=== PATIENT | male | born 1945 | race Caucasian/White ===

== ENCOUNTER 2017-03-21 12:26 | Day surgery (SDC) | payer MEDICARE, OTHER ==
[2017-03-18 10:01] VITALS: BMI 26.5
[~2017-03-21 12:26] MED LIST: LACTATED RINGERS 1,000 ML IV SCH; LIDOCAINE 1% 20 ML VIAL (10MG/ML) FOR IV START INTRADERMA PRN
[2017-03-21 12:58] VITALS: TEMP 97.3
[2017-03-21] MEDS ORDERED: PROPOFOL 10 MG/ML 20 ML VIAL IV ONE (14:20)
--- NOTE | 2017-03-21 14:51 | P.PCN ---
Date of Procedure: 03/21/17 Preoperative Diagnosis: Postoperative Diagnosis: Procedure(s) Performed: Procedure: Esophagogastroduodenoscopy and biopsy. Preoperative diagnosis: Chronic reflux symptoms with recent nocturnal episodes of vomiting despite therapy. Postoperative diagnosis: 1. Moderately sized hiatal hernia with LA grade B distal esophagitis. 2. Mild antral gastritis. 3. Multiple biopsies obtained from the duodenum, antrum and esophagus. Preparation and sedation: Was provided by anesthesia. Brief clinical history: The patient is a 71-year-old male who I have evaluated in the office recently regarding chronic reflux symptoms with recent nocturnal episodes of vomiting while on therapy. The patient apparently was diagnosed in the and his problem was controlled with Nexium or other PPI. For the last 3 months or so he is been having nocturnal episodes of reflux and vomiting. This evaluation is to assess for the degree of his esophagitis, rule out complicated reflux disease or other pathology. Procedure: With the patient on his left lateral decubitus position and after informed consent and adequate sedation, I passed the Olympus-GIF 160 video upper endoscope through the cricopharyngeus down the esophagus GE junction was around 35 cm from the incisors and there was a moderately sized hiatal hernia close to 4 or 5 cm in size. The esophagus showed short linear erosion terminating at the GE junction consistent with LA grade B distal esophagitis. There were no ulcers, strictures or Fischer's esophagus. The endoscope was then passed into the stomach which was insufflated with air and inspected in detail including the retroflex view in the cardia. There was some mottling and erythema in the antrum but no ulcers or erosions. Pyloric channel, duodenal bulb, post bulbar area and descending duodenum appeared within normal limits. Because of his symptoms, I obtained biopsies from the duodenum, in addition to biopsies from the antrum and esophagus then the endoscope was withdrawn. The patient tolerated the procedure well. Plan: The patient was reassured. Will await biopsy results and make further plans based on his course and biopsy results. I will keep you updated on his progress. Implants: Indications for Procedure: Operative Findings: Description of Procedure:
[2017-03-21 15:17] VITALS: BP 172/85; PULSE 62; RESP 16
== END 2017-03-21 15:42 | disposition home or self-care (01) ==
LOC: ORWHC2ENDO 12:26
DX: K21.0 Gastro-esophageal reflux disease with esophagitis (principal); K29.50 Unspecified chronic gastritis without bleeding; K44.9 Diaphragmatic hernia without obstruction or gangrene; E07.9 Disorder of thyroid, unspecified; I69.398 Other sequelae of cerebral infarction; Z87.891 Personal history of nicotine dependence; Z79.82 Long term (current) use of aspirin; Z79.899 Other long term (current) drug therapy
CPT/HCPCS: 88305; 88312; 88342; 43239; J2704

== ENCOUNTER 2017-07-04 10:20 | Day surgery (SDC) | payer MEDICARE, OTHER ==
[2017-06-30 10:06] VITALS: BMI 26.5
[~2017-07-04 10:20] MED LIST changes: -LIDOCAINE 1% 20 ML VIAL (10MG/ML) FOR IV START INTRADERMA PRN
[2017-07-04 10:53] VITALS: RESP 16; TEMP 971
[2017-07-04] MEDS ORDERED: PROPOFOL 10 MG/ML 20 ML VIAL IV ONE (11:28)
[2017-07-04] MEDS ORDERED: LIDOCAINE 1% INJ 10MG/ML (20 ML MDV) ONE (11:28)
[2017-07-04 12:12] VITALS: PULSE 70
[2017-07-04 12:25] VITALS: BP 108/64
--- NOTE | 2017-07-04 12:42 | P.PCN ---
Date of Procedure: 07/04/17 Procedure(s) Performed: Procedures: 1. Esophagogastroduodenoscopy and biopsy. 2. Total colonoscopy. Preoperative diagnosis: Gastroesophageal reflux disease and blood in the stools. Postoperative diagnosis: 1. Moderately size hiatal hernia with LA grade B/C distal esophagitis but no strictures or Fischer's esophagus. 2. Mild sigmoid diverticulosis with no evidence of acute diverticulitis, strictures, polyps or cancer. Preparation: HalfLytely prep. Sedation: Was provided by anesthesia. Brief clinical history: The patient is a 72-year-old male who I have evaluated in the past regarding chronic reflux symptoms with nocturnal episodes of vomiting while on acid suppressive therapy. The patient apparently was diagnosed in the and his problem was controlled with Nexium or other PPI. For the last several months, he has been having nocturnal episodes of reflux and vomiting. He had an upper endoscopy in March that showed hiatal hernia and LA grade B distal esophagitis as well as gastritis and duodenitis. This evaluation is to assess the healing of the esophagitis and to rule out any colonic pathology to account for the blood in his stool. Procedure: With the patient on his left lateral decubitus position and after informed consent and adequate sedation, I passed the Olympus-GIF 160 video upper endoscope through the cricopharyngeus down the esophagus GE junction was around 35 cm from the incisors and there was a moderately sized hiatal hernia close to 4 or 5 cm in size, as previously described. The esophagus showed short linear erosion terminating at the GE junction consistent with LA grade B/ C distal esophagitis. There were no ulcers, strictures or Fischer's esophagus. The endoscope was then passed into the stomach which was insufflated with air and inspected in detail including the retroflex view in the cardia. No obvious abnormalities were noted. Pyloric channel, duodenal bulb, post bulbar area and descending duodenum appeared within normal limits. Because of his symptoms, I obtained biopsies from the esophagus then the endoscope was withdrawn and I proceeded with the colonoscopy. Perianal area did not show any fissures or fistulas. There were no masses felt on digital rectal examination. The Olympus CFQ 160L video colonoscope was then inserted in the rectum and the usual fashion and advanced to the cecum. There was occasional small diverticular orifices seen in the sigmoid with no evidence of acute diverticulitis or strictures. The mucosa appeared healthy. No polyps or tumors were seen. I retroflexed the endoscope in the rectum before the endoscope was withdrawn. There was no other pathology or any evidence of bleeding noted during this exam. The patient tolerated the procedure well. Plan: The patient was reassured. Will continue to optimize his acid reflux management and make further plans based on his response. He will follow up with you as planned and I will keep you updated on his progress.
== END 2017-07-04 12:57 | disposition home or self-care (01) ==
LOC: ORWHC2ENDO 10:20
DX: K21.0 Gastro-esophageal reflux disease with esophagitis (principal); K92.1 Melena; K44.9 Diaphragmatic hernia without obstruction or gangrene; R11.10 Vomiting, unspecified; K57.30 Diverticulosis of large intestine without perforation or abscess without bleeding; I10 Essential (primary) hypertension; E07.9 Disorder of thyroid, unspecified; E78.5 Hyperlipidemia, unspecified; R25.1 Tremor, unspecified; Z86.73 Personal history of transient ischemic attack (TIA), and cerebral infarction without residual deficits; Z79.899 Other long term (current) drug therapy; Z79.82 Long term (current) use of aspirin
CPT/HCPCS: 88305; 45378; 43239; J2001; J2704

== ENCOUNTER 2019-03-17 11:36 | Emergency (ER) | payer MEDICARE, OTHER ==
[2019-03-17 11:45] VITALS: RESP 18
[2019-03-17] MEDS ORDERED: SODIUM CHLORIDE 0.9% 500 ML 500 ML IV ONE (11:48)
[2019-03-17] MEDS ORDERED: ACETAMINOPHEN TAB 325 MG TAB PO STA (11:56)
--- NOTE | 2019-03-17 11:56 | ED ---
General Adult HPI - General Chief complaint: Recheck/Abnormal Lab/Rx Stated complaint: abn labs Time Seen by Provider: 03/17/19 11:47 Source: patient, RN notes reviewed Mode of arrival: ambulatory Limitations: no limitations - History of Present Illness Initial comments: 73-year-old male presents emergency Department with chief complaint of abnormal labs. Patient states he has been sick for last few days was seen in urgent care and which she'll labs and found to have an elevated d-dimer. Patient states he has productive cough, fevers and chills. Patient did admit that he flew back from the on Tuesday. Patient denies any pleuritic chest pain no chest pain currently. Patient denies headache, dizziness, neck pain, neck stiffness, abdominal pain including nausea vomiting diarrhea constipation. - Related Data Home Medications Medication Instructions Recorded Confirmed Aspirin [Adult Low Dose Aspirin EC] 81 mg PO DAILY 03/18/17 03/17/19 Celecoxib [CeleBREX] 200 mg PO DAILY 03/18/17 03/17/19 Cholecalciferol [Vitamin D3] 5,000 unit PO DAILY 03/18/17 03/17/19 Levothyroxine Sodium [Tirosint] 50 mcg PO DAILY 03/18/17 03/17/19 Montelukast [Singulair] 10 mg PO DAILY 03/18/17 03/17/19 Multivitamins, Thera [Multivitamin 1 tab PO DAILY 03/18/17 03/17/19 (formulary)] [place] 3-6-9 1,600 mg PO DAILY 03/18/17 03/17/19 Sertraline [Zoloft] 25 mg PO DAILY 03/18/17 03/17/19 Simvastatin [Zocor] 80 mg PO HS 03/18/17 03/17/19 Ubidecarenone [Co Q-10] 400 mg PO DAILY 03/18/17 03/17/19 Triamcinolone Acetonide [Nasacort] 1 spray EA NOSTRIL HS PRN 06/30/17 03/17/19 Pantoprazole Sodium [Protonix] 40 mg PO DAILY 03/17/19 03/17/19 Previous Rx's Medication Instructions Recorded Azithromycin [Zithromax Z-pack] 0 mg PO DIRECTED #1 pack 03/17/19 Allergies Allergy/AdvReac Type Severity Reaction Status Date / Time No Known Allergies Allergy Verified 03/17/19 12:04 Review of Systems ROS Statement: Those systems with pertinent positive or pertinent negative responses have been documented in the HPI. ROS Other: All systems not noted in ROS Statement are negative. 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 HIATAL HERNIA. BLOOD IN STOOL; PAIN W/ EATING. History of Any Multi-Drug Resistant Organisms: None Reported Past Surgical History: Orthopedic Surgery, Tonsillectomy Additional Past Surgical History / Comment(s): Rt shoulder surgery, left wrist surgery, rt elbow surgery, bursa removed rt knee. EGD. Past Anesthesia/Blood Transfusion Reactions: No Reported Reaction Past Psychological History: Anxiety Smoking Status: Former smoker Past Alcohol Use History: None Reported Past Drug Use History: None Reported - Past Family History Mother Family Medical History: No Reported History General Exam Limitations: no limitations General appearance: alert, in no apparent distress Head exam: Present: atraumatic, normocephalic, normal inspection Eye exam: Present: normal appearance, PERRL, EOMI. Absent: scleral icterus, conjunctival injection, periorbital swelling ENT exam: Present: normal exam, normal oropharynx, mucous membranes moist Neck exam: Present: normal inspection, full ROM. Absent: tenderness, men ingismus, lymphadenopathy Respiratory exam: Present: normal lung sounds bilaterally. Absent: respiratory distress, wheezes, rales, rhonchi, stridor Cardiovascular Exam: Present: normal rhythm, tachycardia, normal heart sounds. Absent: systolic murmur, diastolic murmur, rubs, gallop, clicks GI/Abdominal exam: Present: soft, normal bowel sounds. Absent: distended, tenderness, guarding, rebound, rigid Course Vital Signs 03/17/19 11:42 Temperature 101.0 F H Pulse Rate 106 H Respiratory 18 Rate Blood Pressure 115/66 O2 Sat by Pulse 95 Oximetry Medical Decision Making - Medical Decision Making 73-year-old male presented ffor abnormal labs. CT is negative for acute PE. Patient does have a fever, labs otherwise unremarkable. Patient we treated for acute bronchitis. Return parameters were discussed. Disposition Clinical Impression: Acute bronchitis Disposition: HOME SELF-CARE Condition: Stable Instructions (If sedation given, give patient instructions): Acute Bronchitis (ED) Additional Instructions: Please return to the Emergency Department if symptoms worsen or any other concerns. Prescriptions: Azithromycin [Zithromax Z-pack] 0 mg PO DIRECTED #1 pack Is patient prescribed a controlled substance at d/c from ED?: No Referrals: Nam Auguste MD [Primary Care Provider] - 1-2 days Time of Disposition: 13:04
--- NOTE | 2019-03-17 13:00 | CT ---
EXAMINATION TYPE: CT chest angio for PE DATE OF EXAM: 03/17/2019 COMPARISON: None. HISTORY: Cough, productive and bloody CT DLP: 289.8 mGycm Automated exposure control for dose reduction was used. CONTRAST: CT Chest for pulmonary embolism performed with with IV Contrast, patient injected with 100 mL of Isov ue 370. FINDINGS: There is some minimal atelectasis at the left lung base. There is no significant axillary a denopathy. There is some shotty mediastinal adenopathy. There is some right hilar adenopathy with the largest lymph node measuring 1.2 cm. There is no evidence of pulmonary embolus. The aorta is normal in caliber without evidence of dissect ion. There is no pleural or pericardial fluid. The heart is not enlarged. There is a moderate sized s liding hiatal hernia. There is a simple appearing 2.6 cm right renal cyst. There is minimal hypertrophic spondylosis within the spine. IMPRESSION: 1. THIS EXAMINATION IS NEGATIVE FOR PULMONARY EMBOLUS. 2. SIMPLE APPEARING RIGHT RENAL CYST.
[2019-03-17] MEDS ORDERED: cefTRIAXone IN SWFI 1,000 MG/10 ML SYRINGE IVP STA (13:02)
[2019-03-17 13:34] VITALS: BP 137/75; PULSE 86; TEMP 97.6
== END 2019-03-17 13:38 | disposition home or self-care (01) ==
LOC: EC 11:36
DX: J20.9 Acute bronchitis, unspecified (principal); R00.0 Tachycardia, unspecified; K21.9 Gastro-esophageal reflux disease without esophagitis; E78.5 Hyperlipidemia, unspecified; E07.9 Disorder of thyroid, unspecified; F41.9 Anxiety disorder, unspecified; Z87.891 Personal history of nicotine dependence; Z79.1 Long term (current) use of non-steroidal anti-inflammatories (NSAID); Z79.82 Long term (current) use of aspirin; Z79.890 Hormone replacement therapy; Z79.899 Other long term (current) drug therapy; Z86.73 Personal history of transient ischemic attack (TIA), and cerebral infarction without residual deficits; Z90.89 Acquired absence of other organs
CPT/HCPCS: 71275; 99283; 96374; 96361; J0696; Q9967

== ENCOUNTER → 2019-03-17 | Outpatient (CLI) | payer MEDICARE, OTHER ==
[2019-03-17 10:55] LABS: Basophils % (A) 0 %; Eosinophils # (A) 0.3 k/uL (0-0.7); Eosinophils % (A) 3 %; HCT 39.7 % (39.0-53.0); HGB 12.5 gm/dL (13.0-17.5); Lymphocytes # (A) 1.6 k/uL (1.0-4.8); Lymphocytes % (A) 18 %; MCH 28.1 pg (25.0-35.0); MCHC 31.4 g/dL (31.0-37.0); MCV 89.7 fL (80.0-100.0); Mean Platelet Volume 7.5; Monocytes # (A) 0.6 k/uL (0-1.0); Monocytes % (A) 7 %; Neutrophils # (A) 5.9 k/uL (1.3-7.7); Neutrophils % (A) 68 %; Platelet Count 235 k/uL (150-450); RBC 4.43 m/uL (4.30-5.90); RDW 12.8 % (11.5-15.5); WBC 8.6 k/uL (3.8-10.6)
[2019-03-17 11:12] LABS: ALT 34 U/L (21-72); AST 33 U/L (17-59); Albumin 4.2 g/dL (3.5-5.0); Albumin/Globulin Ratio 1.3; Alkaline Phosphatase 60 U/L (38-126); Anion Gap 7 mmol/L; Blood Urea Nitrogen 22 mg/dL (9-20); Calcium 9.5 mg/dL (8.4-10.2); Carbon Dioxide 27 mmol/L (22-30); Chloride 107 mmol/L (98-107); Creatine Kinase 63 U/L (55-170); Globulin 3.3 g/dL; Glucose 97 mg/dL (74-99); Potassium 4.2 mmol/L (3.5-5.1); Sodium 141 mmol/L (137-145); Total Bilirubin 0.6 mg/dL (0.2-1.3); Total Protein 7.5 g/dL (6.3-8.2)
== END | disposition home or self-care (01) ==
LOC: LABWHC1 10:29
PROVIDERS: ATTEND Nurse Practitioner Adult Health
DX: R06.00 Dyspnea, unspecified (principal)
CPT/HCPCS: 36415; 80053; 82550; 84484; 85025; 85379

== ENCOUNTER → 2019-03-19 | Outpatient (CLI) | payer MEDICARE, OTHER ==
--- NOTE | 2019-03-19 14:08 | US ---
EXAMINATION TYPE: US venous doppler duplex LE DATE OF EXAM: 03/19/2019 1:45 PM COMPARISON: NONE CLINICAL HISTORY: R79.1 D dimer above reference range. SIDE PERFORMED: Bilateral TECHNIQUE: The lower extremity deep venous system is examined utilizing real time linear array sonog eddie with graded compression, doppler sonography and color-flow sonography. VESSELS IMAGED: External Iliac Vein (EIV) Common Femoral Vein Deep Femoral Vein Greater Saphenous Vein * Femoral Vein Popliteal Vein Small Saphenous Vein * Proximal Calf Veins (* superficial vessels) Grayscale, color doppler, spectral doppler imaging performed of the deep veins of the lower extremiti es. There is normal flow, compressibility, vascular waveforms. Right Leg: Negative for DVT Left Leg: Negative for DVT IMPRESSION: No sonographic evidence of deep venous thrombosis within the bilateral lower extremities .
== END | disposition home or self-care (01) ==
LOC: RADUSWWP 12:59
PROVIDERS: ATTEND Internal Medicine
DX: R79.1 Abnormal coagulation profile (principal)
CPT/HCPCS: 93970

== ENCOUNTER → 2019-03-28 | Outpatient (CLI) | payer MEDICARE, OTHER ==
--- NOTE | 2019-03-28 15:42 | MR ---
EXAMINATION TYPE: MR brain wo/w con DATE OF EXAM: 03/28/2019 COMPARISON: Prior brain MRI 06/29/2016 HISTORY: unspecified symptoms/signs nervous system and previous abnormal brain MRI TECHNIQUE: Multiplanar, multisequence images of the brain and brainstem is performed without and with IV contras t, utilizing 7 mL intravenous Gadavist . FINDINGS: Diffusion weighted images demonstrate no evidence of a recent infarct or other diffusion ab normality. There is no extra-axial fluid collection or significant interval change white matter sign al abnormality. The ventricular system and cisternal spaces are normal in size and appearance. The brain volume is age appropriate, cerebellar atrophy changes are again seen. Midline structures demonstrate normal morphology. The craniocervical junction appears within normal limits. Post contrast images demonstrate no abnormal enhancement. The dural venous sinuses appear pa tent. The visualized sinuses are clear and the globes are intact. Suspect some inflammatory change as sociated with the temporomandibular joint on the left. IMPRESSION: Stable exam. The white matter demyelination seen on previous exam is stable. Additional f indings above.
== END | disposition home or self-care (01) ==
LOC: RADMRIMAIN 13:35
PROVIDERS: ATTEND Physician Assistant
DX: G37.9 Demyelinating disease of central nervous system, unspecified (principal); G31.1 Senile degeneration of brain, not elsewhere classified
CPT/HCPCS: 70553; A9585

== ENCOUNTER → 2019-04-17 | Outpatient (CLI) | payer MEDICARE, OTHER ==
--- NOTE | 2019-04-18 07:11 | US ---
EXAMINATION TYPE: US carotid duplex BILAT DATE OF EXAM: 04/17/2019 COMPARISON: NONE CLINICAL HISTORY: I63.9 CEREBRAL INFARCTION. Stroke 1999, no symptoms now EXAM MEASUREMENTS: RIGHT: Peak Systolic Velocity (PSV) cm/sec ----- Right CCA: 72.7 ----- Right ICA: 89.6 ----- Right ECA: 176.0 ICA/CCA ratio: 1.2 RIGHT: End Diastole cm/sec ----- Right CCA: 20.3 ----- Right ICA: 29.4 ----- Right ECA: 14.4 LEFT: Peak Systolic Velocity (PSV) cm/sec ----- Left CCA: 87.8 ----- Left ICA: 94.1 ----- Left ECA: 142.0 ICA/CCA ratio: 1.1 LEFT: End Diastole cm/sec ----- Left CCA: 18.9 ----- Left ICA: 27.1 ----- Left ECA: 12.5 VERTEBRALS (direction of flow): Right Vertebral: Antegrade Left Vertebral: Antegrade Rhythm: Normal Heterogeneous plaque seen throughout IMPRESSION: Mild degree of grayscale atheromatous plaquing with no sonographically evident hemodynam ically significant stenosis within either internal carotid artery or common carotid artery. Incidenta jama noted 50-69% stenosis in both external carotid arteries. Criteria for Assigning % of Stenosis / Diameter reduction (Estimation based on the indirect measurements of the internal carotid artery velocities (ICA PSV). 1. Normal (no stenosis)=ICA PSV < 125 cm/s: ratio < 2.0: ICA EDV<40 cm/s. 2. Less than 50% stenosis=ICA PSV < 125 cm/s: ratio < 2.0: ICA EDV<40 cm/s. 3. 50 to 69% stenosis=ICA PSV of 125 to 230 cm/s: ration 2.0 ? 4.0: ICA EDV 40-100 cm/s. 4. Greater than 70% stenosis to near occlusion= ICA PSV > 230 cm/s: ratio > 4.0: ICA EDV > 100 cm/s. 5. Near occlusion= ICA PSV velocities may be low or undetectable: variable ratio and ICA EDV. 6. Total occlusion=unable to detect flow.
== END | disposition home or self-care (01) ==
LOC: RADUSWWP 15:20
PROVIDERS: ATTEND Internal Medicine
DX: I65.23 Occlusion and stenosis of bilateral carotid arteries (principal); I63.9 Cerebral infarction, unspecified; I67.2 Cerebral atherosclerosis
CPT/HCPCS: 93880

== ENCOUNTER → 2019-11-29 | Outpatient (CLI) | payer MEDICARE, OTHER ==
--- NOTE | 2019-11-29 11:05 | FL ---
EXAMINATION TYPE: FL barium swallow DATE OF EXAM: 11/29/2019 CLINICAL HISTORY: Reflux, vomiting, dysphagia, nausea, and hiatal hernia. TECHNIQUE: A double contrast esophagram is performed utilizing air and barium. A total of 1 minute and 19 seconds of fluoroscopic time was utilized during procedure. 47 fluoroscopic images were saved during the examination. COMPARISON: None FINDINGS: The esophagus is dilated with a large hiatal hernia and upright images that is sliding as t his appears only moderate on supine images. Severe gastroesophageal reflux is seen on supine real-sven e imaging. No stricture is identified. Irregular filling defect is seen within the gastric fundus suc h as on image 32/47 that is concerning for potential underlying neoplasm although other etiologies ar e possible. Direct visualization is recommended. IMPRESSION: 1. Filling defect of the gastric fundus with irregular margins such as on image 32/47 is seen in neck could represent gastric mass, ulceration, or severe inflammatory process. Endoscopy is recommended. 2. Sliding-type hiatal hernia appearing large and upright images and moderate on supine images creati ng severe gastroesophageal reflux on supine images A Yellow level critical message alert has been initiated for Tricia Good MD via the [employer] Critical Results System on 11/29/2019 11:03 AM. This message alert has been sent to Tricia Good MD via the preferences provided by the clinician for the receipt of Radiology Critical Findings. Mess age ID [id number].
== END | disposition home or self-care (01) ==
LOC: RADUSWWP 09:33
PROVIDERS: ATTEND Physician Assistant
DX: K44.9 Diaphragmatic hernia without obstruction or gangrene (principal); K21.9 Gastro-esophageal reflux disease without esophagitis
CPT/HCPCS: 74220

== ENCOUNTER → 2019-12-17 | Day surgery (SDC) | payer MEDICARE, OTHER ==
[2019-12-12 09:51] VITALS: BMI 27.4
[~2019-12-17] MED LIST changes: +LIDOCAINE 1% (10MG/ML) FOR IV START INTRADERMA PRN; +LIDOCAINE 1% INJ 10MG/ML (20 ML MDV) ONE; +PROPOFOL 10 MG/ML 20 ML VIAL IV ONE
[2019-12-17 11:33] VITALS: TEMP 98.4
--- NOTE | 2019-12-17 12:32 | P.PCN ---
Date of Procedure: 12/17/19 Description of Procedure: BRIEF HISTORY: Patient is a 74-year-old male with a known medical history of GERD and a hiatal hernia. He has been on Protonix 40 mg twice daily and Pepcid daily was continued to have breakthrough symptoms of reflux and regurgitation as well as intermittent dysphagia to solid foods over the past few months.. PROCEDURE PERFORMED: Esophagogastroduodenoscopy with biopsy . PREOPERATIVE DIAGNOSIS: Esophageal dysphagia, dysphagia, GERD ESTIMATED BLOOD LOSS: Minimal. IV sedation per anesthesia. PROCEDURE: After informed consent was obtained, the patient was brought into the endoscopy unit. IV sedation was administered by Anesthesia under continuous monitoring. Initially the Olympus GIF-190 video endoscope was inserted into the mouth. Esophagus intubated without any difficulty. It was gradually advanced into the stomach and duodenum and carefully examined. The bulb and the second part of the duodenum appeared normal, With biopsies taken. The scope at this time was withdrawn to the stomach, adequately insufflated with air, and upon careful examination, mucosa of the antrum, body, cardia and the fundus appeared normal, Except for some mild punctate erythema in the antrum and body suggestive of mild gastritis biopsy taken. The scope was then withdrawn into the esophagus. The GE junction was located at 32 cm from the incisors, With a 7 cm hiatal hernia noted and biopsies of the GE junction taken. The esophagus appeared normal. Ther e were no erosions or ulcerations seen and the patient tolerated the procedure well. IMPRESSION: 1. Mild gastritis antrum and body, biopsied . 2. Biopsies of the duodenum and GE junction. 3. Large hiatal hernia. RECOMMENDATIONS: The findings of this examination were discussed with the patient and his and daughter. Okay to resume medication. Okay to resume diet. Follow-up in gastroenterology clinic as previously scheduled.
[2019-12-17 12:48] VITALS: BP 119/73; PULSE 69; RESP 20
== END ==
LOC: ORWHC2ENDO 11:13
PROVIDERS: ATTEND Internal Medicine
DX: K29.50 Unspecified chronic gastritis without bleeding (principal); K22.70 Barrett's esophagus without dysplasia; K21.9 Gastro-esophageal reflux disease without esophagitis; K44.9 Diaphragmatic hernia without obstruction or gangrene; E07.9 Disorder of thyroid, unspecified; Z86.73 Personal history of transient ischemic attack (TIA), and cerebral infarction without residual deficits; Z79.82 Long term (current) use of aspirin; Z79.890 Hormone replacement therapy; Z79.899 Other long term (current) drug therapy; Z98.890 Other specified postprocedural states; Z87.891 Personal history of nicotine dependence; Z90.89 Acquired absence of other organs; Z80.8 Family history of malignant neoplasm of other organs or systems
CPT/HCPCS: 88305; 43239; J2001; J2704

== ENCOUNTER → 2020-03-24 | Outpatient (CLI) | payer MEDICARE, OTHER ==
--- NOTE | 2020-03-24 09:19 | US ---
EXAMINATION TYPE: US gallbladder DATE OF EXAM: 03/24/2020 COMPARISON: NONE CLINICAL HISTORY: K80.10 Calculus of gallbladder with cholecystitis. Calculus of the gb. EXAM MEASUREMENTS: Liver Length: 13.3 cm Gallbladder Wall: .3 cm CBD: .7 cm Right Kidney: 10.4 x 3.9 x 4.5 cm Pancreas: Largely obscured by bowel gas Liver: wnl Gallbladder: No stones seen Evidence for sonographic Hale's sign: no CBD: wnl Right Kidney: Cystic area upper pole measuring 2.9 x 2.9 x 2.0 cm. IMPRESSION: 1. No sonographic evidence of cholelithiasis nor acute cholecystitis. 2. Pancreas is largely obscured by bowel gas. 3. Benign-appearing right renal cyst measuring 2.9 cm with no internal complexity sonographically.
== END | disposition home or self-care (01) ==
LOC: RADUSWWP 08:51
PROVIDERS: ATTEND Surgery Plastic and Reconstructive Surgery
DX: N28.1 Cyst of kidney, acquired (principal); R14.3 Flatulence
CPT/HCPCS: 76705

== ENCOUNTER 2020-05-16 12:57 | Inpatient (IN) | payer MEDICARE, OTHER ==
--- NOTE | 2020-05-15 21:27 | P.GSHP ---
History of Present Illness H&P Date: 05/16/20 CHIEF COMPLAINT: Paraesophageal hiatal hernia with gastroesophageal reflux disease. HISTORY OF PRESENT ILLNESS: The patient is a 75-year-old male who presents with paraesophageal hiatal hernia. He has completed an esophageal manometry including upper endoscopy workup. Now he presents for surgical intervention. PAST MEDICAL HISTORY: Please see list. PAST SURGICAL HISTORY: Please see list. MEDICATIONS: Please see list. ALLERGIES: Please see list. SOCIAL HISTORY: Please see list. FAMILY HISTORY: Please see list. REVIEW OF ORGAN SYSTEMS: CONSTITUTIONAL: No reports of fevers or chills. GI: Denies any blood in stools or constipation. Has GERD. PHYSICAL EXAM: VITAL SIGNS: Stable GENERAL: Well-developed pleasant and in no acute distress. HEENT: No scleral icterus. Extraocular movements grossly intact. Moist buccal mucosa. NECK: Supple without lymphadenopathy. CHEST: Unlabored respirations. Equal bilateral excursions. CARDIOVASCULAR: Distal 2+ pulses. ABDOMEN: Soft, nondistended. No peritoneal signs. MUSCULOSKELETAL: No clubbing, cyanosis, or edema. SKIN: Well-perfused. Good skin turgor. MANOMETRY: Shows no evidence of achalasia or scleroderma. ASSESSMENT: 1. Diaphragmatic paraesophageal hiatal hernia with severe gastroesophageal reflux disease. PLAN: 1. Recommend proceeding with a robotic paraesophageal hiatal hernia with possible mesh. 2. Benefits and risks of surgical intervention was discussed including possibility of open technique. 3. Inpatient hospitalization recommended of 2 nights 4. DVT prophylaxis. 5. Antibiotic prophylaxis. 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 HIATAL HERNIA. ulcers, History of Any Multi-Drug Resistant Organisms: None Reported Past Surgical History: Orthopedic Surgery, Tonsillectomy Additional Past Surgical History / Comment(s): Rt shoulder surgery, left wrist fusion, rt elbow surgery, bursa removed rt knee. EGD. COLONOSCOPY Past Anesthesia/Blood Transfusion Reactions: No Reported Reaction Smoking Status: Former smoker - Past Family History Mother Family Medical History: No Reported History Father Family Medical History: Cancer, Deep Vein Thrombosis (DVT) Additional Family Medical History / Comment(s): THYROID CANCER Medications and Allergies Home Medications Medication Instructions Recorded Confirmed Type Aspirin [Adult Low Dose Aspirin EC] 81 mg PO DAILY 06/02/17 07/28/20 History Celecoxib [CeleBREX] 200 mg PO DAILY 03/18/17 05/13/20 History Cholecalciferol [Vitamin D3] 5,000 unit PO DAILY 03/18/17 05/13/20 History Montelukast [Singulair] 10 mg PO HS 03/18/17 05/13/20 History Multivitamins, Thera [Multivitamin 1 tab PO DAILY 03/18/17 05/13/20 History (formulary)] [place] 3-6-9 1,600 mg PO DAILY 03/18/17 05/13/20 History Sertraline [Zoloft] 25 mg PO HS 03/18/17 05/13/20 History Simvastatin [Zocor] 80 mg PO HS 03/18/17 05/13/20 History Ubidecarenone [Co Q-10] 400 mg PO DAILY 03/18/17 05/13/20 History Pantoprazole Sodium [Protonix] 40 mg PO DAILY 03/17/19 05/13/20 History Famotidine 40 mg PO HS 05/13/20 05/13/20 History Levothyroxine Sodium [Tirosint] 75 mcg PO DAILY 05/13/20 05/13/20 History Allergies Allergy/AdvReac Type Severity Reaction Status Date / Time No Known Allergies Allergy Verified 05/13/20 10:08
[~2020-05-16 12:57] MED LIST changes: +ACETAMINOPHEN TAB 500 MG TAB PO STA; +CHLORHEXIDINE GLUCONATE 15 ML CUP MUCOUS MEM ONE; +GABAPENTIN 300 MG CAP PO STA; +HEPARIN SODIUM,PORCINE 5,000 UNIT/ML 1 ML VIAL SQ ONE; +HYDROmorphone 0.5 MG/0.5 ML SYRINGE IVP PRN; -LACTATED RINGERS 1,000 ML IV SCH; -LIDOCAINE 1% INJ 10MG/ML (20 ML MDV) ONE; +ONDANSETRON 4 MG/2 ML VIAL IVP ONE; +PANTOPRAZOLE 40 MG/10 ML VIAL IV STA; -PROPOFOL 10 MG/ML 20 ML VIAL IV ONE; +TAMSULOSIN 0.4 MG CAP.ER.24H PO STA
[2020-05-16] MEDS ORDERED: ACETAMINOPHEN TAB 500 MG TAB ONE (13:44)
[2020-05-16] MEDS ORDERED: HEPARIN SODIUM,PORCINE 5,000 UNIT/ML 1 ML VIAL ONE (13:44)
[2020-05-16] MEDS ORDERED: ONDANSETRON 4 MG/2 ML VIAL ONE (13:44)
[2020-05-16] MEDS: LACTATED RINGERS 1,000 ML IV SCH (13:51)
[2020-05-16] MEDS ORDERED: DEXAMETHASONE SOD PHOSPHATE 10 MG/ML 1 ML VIAL IV ONE (14:00)
[2020-05-16 14:03] LABS: Basophils % (A) 1 %; Eosinophils # (A) 0.1 k/uL (0-0.7); Eosinophils % (A) 2 %; HCT 42.6 % (39.0-53.0); HGB 13.9 gm/dL (13.0-17.5); Lymphocytes # (A) 1.7 k/uL (1.0-4.8); Lymphocytes % (A) 31 %; MCH 29.2 pg (25.0-35.0); MCHC 32.7 g/dL (31.0-37.0); MCV 89.4 fL (80.0-100.0); Mean Platelet Volume 7.7; Monocytes # (A) 0.3 k/uL (0-1.0); Monocytes % (A) 6 %; Neutrophils # (A) 3.2 k/uL (1.3-7.7); Neutrophils % (A) 57 %; Platelet Count 211 k/uL (150-450); RBC 4.76 m/uL (4.30-5.90); RDW 12.5 % (11.5-15.5); WBC 5.5 k/uL (3.8-10.6)
[2020-05-16 14:07] LABS: Albumin 4.6 g/dL (3.5-5.0); Calcium 9.9 mg/dL (8.4-10.2); Total Bilirubin 0.7 mg/dL (0.2-1.3); Total Protein 7.6 g/dL (6.3-8.2)
[2020-05-16] MEDS ORDERED: LACTATED RINGERS 1,000 ML IV ONE ×2 (17:14→19:25)
[2020-05-16] MEDS ORDERED: MIDAZOLAM 2 MG/2 ML VIAL ONE (17:31)
[2020-05-16] MEDS ORDERED: NEOSTIGMINE 1 MG/ML 10 ML VIAL ONE (17:31)
[2020-05-16] MEDS ORDERED: LIDOCAINE 1% INJ 10MG/ML (20 ML MDV) ONE (17:31)
[2020-05-16] MEDS ORDERED: ePHEDrine SULFATE/0.9% NACL/PF 50 MG/5 ML SYRINGE IV ONE (17:31)
[2020-05-16] MEDS ORDERED: ROCURONIUM BROMIDE 10 MG/ML 5 ML VIAL IV ONE (17:31)
[2020-05-16] MEDS ORDERED: PHENYLEPHRINE-0.9% NACL SYG 1 MG/10 ML SYRINGE ONE (17:31)
[2020-05-16] MEDS ORDERED: GLYCOPYRROLATE 0.2 MG/ML 2 ML VIAL ONE (17:31)
[2020-05-16] MEDS ORDERED: PROPOFOL 10 MG/ML 20 ML VIAL IV ONE (17:31)
[2020-05-16] MEDS ORDERED: SUCCINYLCHOLINE CHLORIDE 100 MG/5 ML SYR IV ONE (17:31)
[2020-05-16] MEDS ORDERED: fentaNYL (PF) 50 MCG/ML 2 ML AMP ONE (17:31)
[2020-05-16] MEDS ORDERED: BUPIVACAINE (PF) 0.25% 30 ML VIAL SQ ONE (18:10)
[2020-05-16] MEDS ORDERED: HYDROmorphone 1 MG/ML 1 ML SYRINGE IVP PRN (20:02)
[2020-05-16] MEDS ORDERED: ONDANSETRON 4 MG/2 ML VIAL IVP PRN (20:02)
[2020-05-16] MEDS ORDERED: ALBUTEROL NEBULIZED 2.5 MG/3 ML INHALATION ONE (20:08)
--- NOTE | 2020-05-16 20:19 | P.OP ---
Date of Procedure: 05/16/20 Description of Procedure: Date of Procedure: 05/16/20 SURGEON: LANG CABRERA MD PREOPERATIVE DIAGNOSES: 1. Symptomatic paraesophageal diaphragmatic hiatal hernia 2. Gastroesophageal reflux disease. 3. Dysphagia 4. Esophageal dysmotility 5. Depressive disorder 6. Chronic structure pulmonary disease 7. Hyperlipidemia 8. Hypothyroidism 9. Previous history of CVA POSTOPERATIVE DIAGNOSES: 1. Symptomatic paraesophageal diaphragmatic hiatal hernia, 6 x 8 cm with in carceration 2. Gastroesophageal reflux disease. 3. Dysphagia 4. Esophageal dysmotility 5. Depressive disorder 6. Chronic structure pulmonary disease 7. Hyperlipidemia 8. Hypothyroidism 9. Previous history of CVA 10. Mediastinal lipoma OPERATION: 1. Robotic-assisted da Scott Xi laparoscopic reduction of mediastinal lipoma and repair of incarcerated paraesophageal hiatal hernia, 6 x 8 cm, with [place] Biopatch A 8 x 8 cm. 2. Intraoperative esophagogastroduodenoscopy Anesthesia: GETA, local Estimated Blood Loss (ml): 5 Pathology: none sent Condition: stable Disposition: ICU COMPLICATIONS: None. Operative Findings: 1. Midline incarcerated paraesophageal hiatal hernia incorporating over 40% gastric cardia and body into the mediastinum, reduced 2. Large mediastinal lipoma posteriorly acting as a lead point reduced into the abdomen 3. Hiatal hernia defect 6 x 8 cm repaired 4. GE junction at 40 cm from the incisors 5. Esophagus reduced into abdomen, 2 cm 6. Intraoperative upper endoscopy confirms complete closure of hiatal hernia from Hill grade 4 to Hill grade 1 INDICATIONS: The patient is a 75-year-old male who presents with dysphagia, gastroesophageal reflux disease poorly controlled despite medications, and a symptomatic diaphragmatic hiatal hernia. Preoperative workup including upper endoscopy demonstrated a sliding hiatal hernia. He completed an esophageal manometry. Given the severity of symptoms, he had elected for surgical intervention. Benefits and risks including bleeding, infection, recurrence, dysphagia, injury to the lung, need for further surgery was described at length. Informed consent was obtained. DESCRIPTION: The patient was brought into the operating room and placed in supine position. Preoperatively he had received heparin subcutaneously for DVT prophylaxis. After general induction, the abdomen was prepped and draped in standard sterile fashion. Ioban draping was placed along the abdomen. A timeout protocol was confirmed with the surgical team, for which the patient's name, procedure to be performed including DVT prophylaxis with bilateral SCDs, and preoperative antibiotics were also confirmed. A robotic da Scott Xi system was prepped and primed. At 12 cm from the xiphoid to just below the umbilicus, proposed port sites were marked with indelible marker along the left axillary line, left mid-clavicular line with each ports were marked 10 cm from each other. A 5 mm 0 degrees laparoscopic trocar entry was performed along the left upper quadrant. The abdomen was insufflated to 15 mmHg pressure was tolerated well. Diagnostic laparoscopy demonstrated no injury to bowel, viscera, or mesentery. No injury had occurred to the small bowel or viscera. The liver was smooth, with sharp edges consistent with two-week high-protein low-carb diet. Next, one 8 mm robotic port was placed along the right upper abdomen. An 8-mm port was were placed along the right lateral lateral abdominal wall. The camera 8-mm port was maintained along the epigastrium. Another 12 mm port was placed along the left upper abdominal wall after exchanging the 5 mm port. Please note that the ports were placed at least 15 cm away from the target anatomy. Care was taken to check that each robotic arm were safely away from collision with the bed or the patient. At the epigastrium, a medium sized Joel liver retractor was placed under direct visualization with the [employer] Developer placed under the right shoulder of the patient. All robotic arms were used. The patient was repositioned in reverse Trendelenburg position at 16-degrees after lowering the bed. The robot was docked above the right side of the patient. Using a grasper for arm 3, a grasper for arm 1, including vessel sealer for arm 2, the robotic system was docked and primed as described. Instruments were interchanged by the assistant plant manager. I had sat at the console. The gastrohepatic ligament was cleaved using a vessel sealer. Next, the phrenoesophageal ligament was mobilized and the distal esophagus was mobilized circumferentially. The left and right crura was identified. Circumferentially, the hernia sac was excised and brought into the peritoneal cavity. Moderate dissection into the mediastinum was performed to release the esophagus into the abdominal cavity including a large mediastinal lipoma 5 cm was reduced. The paraesophageal hiatal hernia sac was also incised and divided from the esophagus. Care was taken to avoid any gastrotomy. Additionally, adhesions about the greater curvature of the stomach was dissected free from the spleen to reduce the stomach into the abdominal cavity. The measured defect was consistent with 6 cm axial length and 8 cm in width. After dissection, the distal esophagus of 2+ cm was brought into the abdominal cavity. Once the hiatus and crura was dissected, 2-0 VLOC nonabsorbable suture was placed to reapproximate the diaphragmatic hiatus posteriorly. To buttress the repair, a [place] Biopatch A was prepared along the back table and cut in half of a durant-hole fashion as to reinforce the repair as an underlay. The mesh was placed along the crural repair and tagged using horizontal mattress sutures using 2-0 VLOC. An Olympus gastroscope was passed through posterior oropharynx. Retroflexion of the scope confirmed a Hill grade 1 lower esophageal valve. The stomach had been desufflated. No evidence of leaks were found of the esophagus or stomach. The squamocolumnar junction was at 40 cm from the incisors. The hiatus was at 40 cm from the incisors. The GI tract with desufflated This concluded the endoscopic portion of the case. The robot was undocked from the patient. I re-scrubbed into the case. All instruments and pneumoperitoneum and specimens were evacuated from the abdominal cavity. Incisions were reapproximated using 4-0 Monocryl in an interrupted subcuticular fashion. Liquid glue was applied to the skin. Local anesthetic was infiltrated in all wounds for postop analgesia. Multiple intra-abdominal films were obtained. At the end of the procedure, needle, sponge, and instrument count was verified correct by the surgical scrub technician. The patient had tolerated the procedure well and was taken to the postanesthesia unit in stable condition.
--- NOTE | 2020-05-16 20:22 | P.PN ---
Progress Note - Text Progress Note Date: 05/16/20 Patient awoken from anesthesia with O2 sats in 86%. Patient complaining of chest pain left-sided. Portable chest x-ray obtained. CBC including troponins EKG being obtained. On nonrebreather, O2 sat elevated to 97%. Recommend observation in intensive care unit.
--- NOTE | 2020-05-16 20:25 | XR ---
EXAMINATION TYPE: XR chest 1V portable DATE OF EXAM: 05/16/2020 COMPARISON: None INDICATION: Chest pain TECHNIQUE: Single frontal view of the chest is obtained. FINDINGS: The heart size is normal. The pulmonary vasculature is normal. Right lower lobe infiltrate is present. Correlate for atelectasis and pneumonia. Follow-up is recomme nded. IMPRESSION: 1. Right lower lobe infiltrate. Correlate for atelectasis or pneumonia. Follow-up is recommended
[2020-05-16 20:37] LABS: Basophils % (A) 0 %; Eosinophils % (A) 0 %; HCT 37.9 % (39.0-53.0); HGB 12.2 gm/dL (13.0-17.5); Lymphocytes # (A) 0.9 k/uL (1.0-4.8); Lymphocytes % (A) 20 %; MCH 29.4 pg (25.0-35.0); MCHC 32.1 g/dL (31.0-37.0); MCV 91.6 fL (80.0-100.0); Mean Platelet Volume 8.2; Monocytes # (A) 0.1 k/uL (0-1.0); Monocytes % (A) 1 %; Neutrophils # (A) 3.5 k/uL (1.3-7.7); Neutrophils % (A) 78 %; Platelet Count 153 k/uL (150-450); RBC 4.14 m/uL (4.30-5.90); RDW 12.6 % (11.5-15.5); WBC 4.5 k/uL (3.8-10.6)
[2020-05-16] MEDS ORDERED: HYDROmorphone 1 MG/ML 1 ML SYRINGE IVP ONE (20:40)
[2020-05-16] MEDS ORDERED: KETOROLAC 30 MG/ML 1 ML VIAL IVP ONE (20:40)
[2020-05-16] MEDS ORDERED: SIMETHICONE 40 MG/0.6 ML DROPS 2,000 MG/30 ML BOTTLE PO STA (20:44)
[2020-05-16] MEDS ORDERED: NALOXONE 0.4 MG/ML 1 ML VIAL IV PRN (20:45)
[2020-05-16] MEDS ORDERED: diphenhydrAMINE 50 MG/ML 1 ML VIAL IVP PRN (20:45)
[2020-05-16] MEDS ORDERED: ACETAMINOPHEN IV (For NPO) 1,000 MG in EMPTY BAG 1 BAG IVPB ONE (20:45)
--- NOTE | 2020-05-16 20:45 | P.PN ---
Progress Note - Text Progress Note Date: 05/16/20 Patient currently on nonrebreather 100% oxygenation. Chest x-ray confirms no pneumothorax. EKG demonstrates junctional rhythm. Additional labs including troponin and labs pending. I personally discussed case with Dr. Pulido. Monitoring intensive care unit advised.
[2020-05-16 20:49] LABS: Potassium 3.9 mmol/L (3.5-5.1)
[2020-05-16] MEDS ORDERED: MONTELUKAST 10 MG TAB PO SCH (21:00)
[2020-05-16] MEDS ORDERED: SODIUM CHLORIDE 0.9% 1,000 ML IV SCH (21:00)
[2020-05-16 21:34] LABS: Glucose,Whole Blood 137 mg/dL (75-99)
[2020-05-16] MEDS: KETOROLAC 30 MG/ML 1 ML VIAL IVP SCH (23:04)
[2020-05-17] MEDS: METOCLOPRAMIDE 5 MG/ML 2 ML VIAL IVP SCH ×3 (00:17→12:08)
[2020-05-17] MEDS: ONDANSETRON 4 MG/2 ML VIAL IVP SCH ×3 (00:17→12:08)
[2020-05-17] MEDS: ACETAMINOPHEN TAB 500 MG TAB PO SCH ×3 (00:30→12:08)
[2020-05-17] MEDS: KETOROLAC 30 MG/ML 1 ML VIAL IVP SCH ×2 (03:19→08:39)
[2020-05-17] MEDS: SIMETHICONE 40 MG/0.6 ML DROPS 2,000 MG/30 ML BOTTLE PO SCH ×2 (03:31→08:40)
[2020-05-17 05:34] LABS: Calcium 8.9 mg/dL (8.4-10.2); Magnesium 1.8 mg/dL (1.6-2.3); Potassium 4.1 mmol/L (3.5-5.1)
[2020-05-17 05:35] LABS: Basophils % (A) 0 %; Eosinophils % (A) 0 %; HCT 38.5 % (39.0-53.0); HGB 12.5 gm/dL (13.0-17.5); Lymphocytes # (A) 1.5 k/uL (1.0-4.8); Lymphocytes % (A) 17 %; MCH 29.3 pg (25.0-35.0); MCHC 32.3 g/dL (31.0-37.0); MCV 90.5 fL (80.0-100.0); Monocytes # (A) 0.5 k/uL (0-1.0); Monocytes % (A) 5 %; Neutrophils # (A) 6.8 k/uL (1.3-7.7); Neutrophils % (A) 77 %; Platelet Count 192 k/uL (150-450); RBC 4.26 m/uL (4.30-5.90); RDW 12.5 % (11.5-15.5); WBC 8.9 k/uL (3.8-10.6)
[2020-05-17] MEDS: LACTATED RINGERS 1,000 ML IV SCH (05:55)
[2020-05-17] MEDS ORDERED: LEVOTHYROXINE 75 MCG TAB PO SCH (06:30)
[2020-05-17 07:59] VITALS: BP 123/65; RESP 18; TEMP 98.4
[2020-05-17] MEDS: ALBUTEROL NEBULIZED 2.5 MG/3 ML INHALATION SCH ×2 (08:23→11:54)
[2020-05-17] MEDS ORDERED: TAMSULOSIN 0.4 MG CAP.ER.24H PO SCH (08:30)
--- NOTE | 2020-05-17 08:56 | FL ---
EXAMINATION TYPE: FL esophagus cervic/pharynx DATE OF EXAM ORDERED: 05/17/2020 8:28 AM HISTORY: Hiatal hernia repair. COMPARISON: None. FINDINGS: Patient drank contrast with ease. The esophagus distended normally with air contrast witho ut evidence of obstructing or constricting lesion. Contrast did hold up at the GE junction temporaril y and there was a mild obstruction. No free air was seen. IMPRESSION: STATUS POST SHAD FUNDOPLICATION. FLUOROSCOPY TIME 1 MINUTE 21 SECONDS
[2020-05-17] MEDS ORDERED: MELOXICAM 7.5 MG TAB PO SCH (09:00)
[2020-05-17] MEDS ORDERED: ASPIRIN 81 MG PO SCH (09:00)
[2020-05-17] MEDS ORDERED: PANTOPRAZOLE 40 MG/10 ML VIAL IV SCH (09:00)
[2020-05-17] MEDS ORDERED: ENOXAPARIN 30 MG/0.3 ML SYRINGE SQ SCH (09:00)
[2020-05-17 12:03] VITALS: PULSE 74
[2020-05-17 12:13] VITALS: BMI 27.4
--- NOTE | 2020-05-17 12:35 | CONS ---
CONSULTATION REASON FOR CONSULTATION: This is a 75-year-old gentleman who is status post hiatal hernia repair. He is postop day #1. The patient had a paraesophageal hiatal hernia with gastroesophageal reflux disease. Dr. Michaud did the surgery. The patient had a laparoscopic repair of the paraesophageal hernia. The patient does have a history of CVA, GERD, hyperlipidemia, and hypothyroidism. After the surgery, the patient apparently had some chest pain. There was some concern about a pneumothorax, but a pneumothorax was not discovered. Dr. Michaud called me on the phone and asked if we could place the patient in the ICU overnight for observation. I consented and the patient currently is doing very well. Initially, he was on 15 L of high-flow oxygen. Currently, he is on 2 L and probably does not need any oxygen at all. He is getting saline at 75 mL an hour. No longer having any chest pain or chest discomfort. He feels generally very well. PAST MEDICAL HISTORY: Positive for CVA, GERD, hyperlipidemia, and hypothyroidism. SURGICAL HISTORY: Includes tonsillectomy, right shoulder surgery, left wrist fusion, right elbow surgery, and EGD with colonoscopy. SOCIAL HISTORY: Positive for previous tobacco use. Denies any alcohol use or illicit drug use. FAMILY HISTORY: Positive for a mother with no medical problems and a father with DVT and thyroid cancer. HOME MEDICATIONS: Include aspirin, Celebrex, vitamin D3, Singulair, multivitamins, omega-3 acid, Zoloft, Zocor, coenzyme Q, Protonix, famotidine and levothyroxine. ALLERGIES: Denied. REVIEW OF SYSTEMS: CONSTITUTIONAL: Negative. NEUROLOGIC negative. HEENT negative. CARDIOVASCULAR negative. PULMONARY negative. GI negative. RHEUMATOLOGIC: Negative. IMMUNOLOGIC negative. ENDOCRINOLOGIC negative. DERMATOLOGIC negative. PHYSICAL EXAMINATION: VITAL SIGNS: Current vital signs are reviewed. Temperature is 98.4. Heart rate 88, respiratory rate 18, blood pressure 123/65. Mean 84. Room air saturation 94%. GENERAL: Appears in no acute distress. HEENT: Examination is grossly unremarkable. NECK: Supple. Full range of motion. No adenopathy. Neck veins are flat. CARDIOVASCULAR: Examination reveals a regular rhythm and rate. S1, S2 normal. No S3, S4, murmur. LUNGS: Clear. Breath sounds equal. No wheezes or rhonchi. No crackles. Breath sounds equal bilaterally. ABDOMEN: Soft. No bowel sounds. EXTREMITIES are intact. No cyanosis, clubbing, or edema. SKIN: Without rash. NEUROLOGIC: Examination is brief but nonfocal. LAB DATA: Reviewed. White count 8.9, hemoglobin 12.5, hematocrit 38.5, platelet count normal. Sodium, potassium chloride, CO2 all normal. Anion gap 6. BUN and creatinine were 24 and 0.96. Troponins were negative. CHEST X-RAY: Done yesterday shows some possible atelectasis right lower lobe. Medications are reviewed. Currently, the patient is getting Tylenol, albuterol updrafts, aspirin, Benadryl, Lovenox, Dilaudid, Toradol, LR, levothyroxine, Reglan, Singulair, Narcan, Zofran, simethicone and Flomax. ASSESSMENT: 1. Postoperative day #1 status post laparoscopic repair of paraesophageal hiatal hernia. 2. Postoperative hypoxemia with chest pain, resolved. 3. History of severe gastroesophageal reflux disease. 4. History of cerebrovascular accident in the past. 5. History of hyperlipidemia. 6. Hypothyroidism. PLAN: Currently, the patient is doing well. The patient does not need supplemental oxygen. That can be discontinued. The patient could be transferred to general medical floor. No additional recommendations are made. We will continue to follow. Prognosis is guarded. MMODL / IJN: [id number] /
--- NOTE | 2020-05-17 13:47 | P.DS ---
Providers Date of admission: 05/16/20 20:45 Expected date of discharge: 05/17/20 Attending physician: Gabriella Michaud Consults: 05/16/20 20:43 Consult Physician Urgent Consulting Provider: Rubens Pulido Reason/Comments: ICU MANAGEMENT Do you want consulting provider notified?: Already Contacted Primary care physician: Nam Auguste - Discharge Diagnosis(es) (1) Paraesophageal hernia with obstruction but no gangrene Status: Acute (2) Gastroesophageal reflux disease Status: Acute (3) COPD (chronic obstructive pulmonary disease) Status: Acute Hospital Course: POSTOPERATIVE DIAGNOSES: 1. Symptomatic paraesophageal diaphragmatic hiatal hernia, 6 x 8 cm with incarceration 2. Gastroesophageal reflux disease. 3. Dysphagia 4. Esophageal dysmotility 5. Depressive disorder 6. Chronic structure pulmonary disease 7. Hyperlipidemia 8. Hypothyroidism 9. Previous history of CVA 10. Mediastinal lipoma COURSE: The patient is a 75-year-old male who presents with dysphagia, gastroesophageal reflux disease poorly controlled despite medications, and a symptomatic diaphragmatic hiatal hernia. Preoperative workup including upper endoscopy demonstrated a sliding hiatal hernia. He completed an esophageal manometry. Given the severity of symptoms, he had elected for surgical intervention. Benefits and risks including bleeding, infection, recurrence, dysphagia, injury to the lung, need for further surgery was described at length. Patient postoperatively complained of moderate chest pain secondary to insufflation. Chest x-ray was negative for pneumothorax. Patient had low oxygen saturation requiring observation in intensive care unit. After incentive spirometry use including nonrebreather mask overnight, chest pain completely resolved including oxygenation on room air over 97%. Patient reports complete resolution of chest pain. Dietary restrictions reviewed in detail. Patient was deemed stable for discharge. Patient tolerated diet. Esophagram was negative for leaks. Patient denied any dysphagia. He also reported moderate improvement of his swallowing following surgery. Patient was taken off all antacids. PHYSICAL EXAM: VITAL SIGNS: Reviewed Vital Signs Temp 98.4 F 05/17/20 07:58 Pulse 74 05/17/20 12:02 Resp 18 05/17/20 07:58 BP 123/65 05/17/20 07:58 Pulse Ox 94 L 05/17/20 07:58 CONSTITUTIONAL: Well developed and in no acute distress. EYES: Conjuctivae without sclera icterus. Extraocular movements grossly intact. HEAD, EARS, NOSE, THROAT: Moist buccal mucosa. Head is atraumatic, normocephalic. Hears conversational speech. No nasal drainage. NECK: Supple. No thyroidomegaly. RESPIRATORY: Non-labored respirations and equal bilateral excursions. CARDIOVASCULAR: Palpable 2+ radial pulses. Regular rate. Regular rhythm. ABDOMEN: Incisions clean dry and intact. Soft. No peritonitis. Minimal tenderness left upper quadrant. MUSCULOSKELETAL: No gross deformity of the lower extremities noted. No clubbing. No cyanosis. SKIN: Good skin turgor. Well perfused. NEUROLOGIC: Cranial nerves II through XII grossly intact. No focal or lateralizing signs. PSYCH: Appropriate affect. Alert and oriented to person, place and time. CLINICAL LABS: White blood cell count normal PLAN: 1. Patient is stable for discharge Laboratory Last Values WBC 8.9 k/uL (3.8-10.6) 05/17/20 04:36 RBC 4.26 m/uL (4.30-5.90) L 05/17/20 04:36 Hgb 12.5 gm/dL (13.0-17.5) L 05/17/20 04:36 Hct 38.5 % (39.0-53.0) L 05/17/20 04:36 MCV 90.5 fL (80.0-100.0) 05/17/20 04:36 MCH 29.3 pg (25.0-35.0) 05/17/20 04:36 MCHC 32.3 g/dL (31.0-37.0) 05/17/20 04:36 RDW 12.5 % (11.5-15.5) 05/17/20 04:36 Plt Count 192 k/uL (150-450) 05/17/20 04:36 Neutrophils % 77 % 05/17/20 04:36 Lymphocytes % 17 % 05/17/20 04:36 Monocytes % 5 % 05/17/20 04:36 Eosinophils % 0 % 05/17/20 04:36 Basophils % 0 % 05/17/20 04:36 Neutrophils # 6.8 k/uL (1.3-7.7) 05/17/20 04:36 Lymphocytes # 1.5 k/uL (1.0-4.8) 05/17/20 04:36 Monocytes # 0.5 k/uL (0-1.0) 05/17/20 04:36 Eosinophils # 0.0 k/uL (0-0.7) 05/17/20 04:36 Basophils # 0.0 k/uL (0-0.2) 05/17/20 04:36 Sodium 137 mmol/L (137-145) 05/17/20 04:36 Potassium 4.1 mmol/L (3.5-5.1) 05/17/20 04:36 Chloride 106 mmol/L (98-107) 05/17/20 04:36 Carbon Dioxide 25 mmol/L (22-30) 05/17/20 04:36 Anion Gap 6 mmol/L 05/17/20 04:36 BUN 24 mg/dL (9-20) H 05/17/20 04:36 Creatinine 0.96 mg/dL (0.66-1.25) 05/17/20 04:36 Est GFR (CKD-EPI)AfAm 89 (>60 ml/min/1.73 sqM) 05/17/20 04:36 Est GFR (CKD-EPI)NonAf 77 (>60 ml/min/1.73 sqM) 05/17/20 04:36 Glucose 158 mg/dL (74-99) H 05/16/20 20:20 POC Glucose (mg/dL) 137 mg/dL (75-99) H 05/16/20 21:32 POC Glu Journeyman Mechanic Yogi Mejia 05/16/20 21:32 Calcium 8.9 mg/dL (8.4-10.2) 05/17/20 04:36 Phosphorus 4.0 mg/dL (2.5-4.5) 05/17/20 04:36 Magnesium 1.8 mg/dL (1.6-2.3) 05/17/20 04:36 Total Bilirubin 0.7 mg/dL (0.2-1.3) 05/16/20 13:48 AST 33 U/L (17-59) 05/16/20 13:48 ALT 18 U/L (4-49) 05/16/20 13:48 Alkaline Phosphatase 43 U/L (38-126) 05/16/20 13:48 Troponin I <0.012 ng/mL (0.000-0.034) 05/16/20 20:20 Total Protein 7.6 g/dL (6.3-8.2) 05/16/20 13:48 Albumin 4.6 g/dL (3.5-5.0) 05/16/20 13:48 Procedures: OPERATION: 1. Robotic-assisted da Scott Xi laparoscopic reduction of mediastinal lipoma and repair of incarcerated paraesophageal hiatal hernia, 6 x 8 cm, with [place] Biopatch A 8 x 8 cm. 2. Intraoperative esophagogastroduodenoscopy Anesthesia: GETA, local Estimated Blood Loss (ml): 5 Pathology: none sent Condition: stable Disposition: ICU COMPLICATIONS: None. Operative Findings: 1. Midline incarcerated paraesophageal hiatal hernia incorporating over 40% gastric cardia and body into the mediastinum, reduced 2. Large mediastinal lipoma posteriorly acting as a lead point reduced into the abdomen 3. Hiatal hernia defect 6 x 8 cm repaired 4. GE junction at 40 cm from the incisors 5. Esophagus reduced into abdomen, 2 cm 6. Intraoperative upper endoscopy confirms complete closure of hiatal hernia from Hill grade 4 to Hill grade 1 Patient Condition at Discharge: Stable Plan - Discharge Summary Discharge Rx Participant: Yes New Discharge Prescriptions: New Acetaminophen Tab [Tylenol Tab] 500 mg PO Q6H PRN #30 tablet PRN Reason: Pain Continue Multivitamins, Thera [Multivitamin (formulary)] 1 tab PO DAILY Ubidecarenone [Co Q-10] 400 mg PO DAILY Cholecalciferol [Vitamin D3 (25 Mcg = 1000 Iu)] 5,000 unit PO DAILY Aspirin [Adult Low Dose Aspirin EC] 81 mg PO DAILY Montelukast [Singulair] 10 mg PO HS Simvastatin [Zocor] 80 mg PO HS Sertraline [Zoloft] 25 mg PO HS Celecoxib [CeleBREX] 200 mg PO DAILY [place] 3-6-9 1,600 mg PO DAILY Levothyroxine Sodium [Tirosint] 75 mcg PO DAILY Discontinued Pantoprazole Sodium [Protonix] 40 mg PO DAILY Famotidine 40 mg PO HS Discharge Medication List Aspirin [Adult Low Dose Aspirin EC] 81 mg PO DAILY 03/18/17 [History] Celecoxib [CeleBREX] 200 mg PO DAILY 03/18/17 [History] Cholecalciferol [Vitamin D3 (25 Mcg = 1000 Iu)] 5,000 unit PO DAILY 03/18/17 [History] Montelukast [Singulair] 10 mg PO HS 03/18/17 [History] Multivitamins, Thera [Multivitamin (formulary)] 1 tab PO DAILY 03/18/17 [History] [place] 3-6-9 1,600 mg PO DAILY 03/18/17 [History] Sertraline [Zoloft] 25 mg PO HS 03/18/17 [History] Simvastatin [Zocor] 80 mg PO HS 03/18/17 [History] Ubidecarenone [Co Q-10] 400 mg PO DAILY 03/18/17 [History] Levothyroxine Sodium [Tirosint] 75 mcg PO DAILY 05/13/20 [History] Acetaminophen Tab [Tylenol Tab] 500 mg PO Q6H PRN #30 tablet 05/17/20 [Rx] Follow up Appointment(s)/Referral(s): Gabriella Michaud MD [STAFF PHYSICIAN] - 05/27/20 Patient Instructions/Handouts: Laparoscopic Hiatal Hernia Repair (DC) Activity/Diet/Wound Care/Special Instructions: Liquid diet only until May 30 No carbonated beverages. No straws. No lifting over 4 pounds in 4 weeks, Jun 17February shower. No bath tub soaks for 2 weeks until May 30 May take [id number] Tylenol for pain. Do not remove scopolamine patch for 3 days, if present Discharge Disposition: HOME SELF-CARE
[2020-05-18] MEDS ORDERED: ENOXAPARIN 40 MG/0.4 ML SYRINGE SQ SCH (09:00)
== END 2020-05-17 14:28 | disposition home or self-care (01) | DRG 328 ==
LOC: OR 12:57 → 2SICU 20:45 → OR 23:50
PROVIDERS: ADMIT Surgery Plastic and Reconstructive Surgery; ATTEND Surgery Plastic and Reconstructive Surgery
PROC: 0BUT4JZ Supplement Diaphragm with Synthetic Substitute, Percutaneous Endoscopic Approach (ICD-10-PCS; principal; 2020-05-16 14:40)
PROC: 8E0W4CZ Robotic Assisted Procedure of Trunk Region, Percutaneous Endoscopic Approach (ICD-10-PCS; principal; 2020-05-16 14:40)
PROC: 0DJ08ZZ Inspection of Upper Intestinal Tract, Via Natural or Artificial Opening Endoscopic (ICD-10-PCS; principal; 2020-05-16 14:40)
DX: K44.0 Diaphragmatic hernia with obstruction, without gangrene (principal); D17.4 Benign lipomatous neoplasm of intrathoracic organs; J44.9 Chronic obstructive pulmonary disease, unspecified; E03.9 Hypothyroidism, unspecified; R09.02 Hypoxemia; E78.5 Hyperlipidemia, unspecified; K21.9 Gastro-esophageal reflux disease without esophagitis; K22.4 Dyskinesia of esophagus; K66.0 Peritoneal adhesions (postprocedural) (postinfection); E78.2 Mixed hyperlipidemia; F32.9 Major depressive disorder, single episode, unspecified; I08.1 Rheumatic disorders of both mitral and tricuspid valves; M19.90 Unspecified osteoarthritis, unspecified site; Z79.82 Long term (current) use of aspirin; Z79.890 Hormone replacement therapy; Z79.1 Long term (current) use of non-steroidal anti-inflammatories (NSAID); Z79.899 Other long term (current) drug therapy; Z98.1 Arthrodesis status; Z86.73 Personal history of transient ischemic attack (TIA), and cerebral infarction without residual deficits; Z90.89 Acquired absence of other organs; Z98.890 Other specified postprocedural states; Z87.891 Personal history of nicotine dependence; Z87.39 Personal history of other diseases of the musculoskeletal system and connective tissue; Z80.8 Family history of malignant neoplasm of other organs or systems; Z83.2 Family history of diseases of the blood and blood-forming organs and certain disorders involving the immune mechanism; Z82.49 Family history of ischemic heart disease and other diseases of the circulatory system
CPT/HCPCS: 71045; 74210; 80048; 80051; 80053; 82310; 82565; 83735; 84100; 84484; 84520; 85025; 93005; 94640

== ENCOUNTER → 2021-03-05 | Outpatient (CLI) | payer MEDICARE, OTHER ==
--- NOTE | 2021-03-05 14:08 | FL ---
COMPARISON: None Available CLINICAL HISTORY: Patient has a history of diaphragmatic hernia with repair. Difficulty with epigastr ic pain. FINDINGS: Double contrast barium esophagram was performed. Initially effervescent crystals were given. Thick o ral barium was given in a cup in the upright position. An oral barium was given through a straw in t he VELA position on the fluoroscopic table. The esophagus shows normal motility and emptying into the stomach. No evidence of persistent filling defect within the esophagus. No hiatal hernia is seen. There is mild spontaneous gastroesophageal re flux to the level of the mid to distal esophagus. Normal anatomic position of the stomach and proxima l duodenum. IMPRESSION: 1. Mild spontaneous gastroesophageal reflux to the mid to distal esophagus.
== END | disposition home or self-care (01) ==
LOC: RADUSWWP 10:48
PROVIDERS: ATTEND Surgery Plastic and Reconstructive Surgery
DX: K21.9 Gastro-esophageal reflux disease without esophagitis (principal)
CPT/HCPCS: 74220

== ENCOUNTER → 2021-03-09 | Outpatient (CLI) | payer MEDICARE, OTHER ==
--- NOTE | 2021-03-09 16:28 | US ---
EXAMINATION TYPE: US gallbladder DATE OF EXAM: 03/09/2021 COMPARISON: 03/24/2020 CLINICAL HISTORY: K81.1 Chronic cholecystitis. RUQ pain. EXAM MEASUREMENTS: Liver Length: 13.5 cm Gallbladder Wall: 0.2 cm CBD: 0.4 cm Right Kidney: 10.5 x 4.5 x 4.7 cm Pancreas: Obscured by bowel gas Liver: wnl Gallbladder: Multiple mobile echogenic foci. This may represent tiny nonshadowing gallstones or slud ge. Evidence for sonographic Hale's sign: Negative CBD: wnl Right Kidney: Superior simple cystic lesion = 2.7 x 2.8 x 3.3 cm IMPRESSION: 1. Tiny gallstones or sludge within the gallbladder. The gallbladder wall is not thickened. There is no pericholecystic fluid. No sonographic positive Hale sign. 2. Simple cyst at the upper pole of the right kidney measuring 3.3 cm. 3. The pancreas is obscured by overlying bowel gas.
--- NOTE | 2021-03-09 16:42 | NM ---
EXAMINATION TYPE: NM hepatobiliary w EF DATE OF EXAM: 03/09/2021 COMPARISON: Gallbladder ultrasound 03/09/2021 HISTORY: Chronic cholecystitis, K 81.1 TECHNIQUE: After the intravenous administration of 4.1 mCi Tc 99m Mebrofenin hepatobiliary scintigrap hy is performed. Immediate images post injection. FINDINGS: There is satisfactory initial accumulation of tracer by the liver. The gallbladder is visualized wit hin 8 minutes. The small bowel activity is noted within 10 minutes. At one hour 8 ounces of oral en sure plus is given to mimic CCK and gallbladder ejection fraction is calculated at 66 %, in the socrates l range. Therefore there is no scintigraphic evidence of cystic or common bile duct obstruction to s uggest acute cholecystitis or gallbladder dyskinesia. IMPRESSION: Exam is within normal limits.
== END | disposition home or self-care (01) ==
LOC: RADUSWWP 12:12
PROVIDERS: ATTEND Surgery Plastic and Reconstructive Surgery
DX: K80.10 Calculus of gallbladder with chronic cholecystitis without obstruction (principal); N28.1 Cyst of kidney, acquired
CPT/HCPCS: 76705; 78226; A9537

== ENCOUNTER → 2021-03-17 | Outpatient (CLI) | payer MEDICARE, OTHER | END | disposition home or self-care (01) | LOC: LABWHC1 13:55 | PROVIDERS: ATTEND Surgery Plastic and Reconstructive Surgery | DX: I11.9 Hypertensive heart disease without heart failure (principal) | CPT/HCPCS: 36415; 93005 ==

== ENCOUNTER 2021-04-09 10:17 | Day surgery (SDC) | payer MEDICARE, OTHER ==
[2021-04-03 15:25] VITALS: BMI 26.2
[~2021-04-09 10:17] MED LIST changes: -ACETAMINOPHEN TAB 500 MG TAB PO STA; -CHLORHEXIDINE GLUCONATE 15 ML CUP MUCOUS MEM ONE; +DEXAMETHASONE SOD PHOSPHATE 4 MG/ML 1 ML VIAL IV ONE; -GABAPENTIN 300 MG CAP PO STA; -HEPARIN SODIUM,PORCINE 5,000 UNIT/ML 1 ML VIAL SQ ONE; +HEPARIN SODIUM,PORCINE/PF 5,000 UNIT/0.5 ML SYRINGE SQ PRN; +LACTATED RINGERS 1,000 ML IV SCH; -LIDOCAINE 1% (10MG/ML) FOR IV START INTRADERMA PRN; -PANTOPRAZOLE 40 MG/10 ML VIAL IV STA; -TAMSULOSIN 0.4 MG CAP.ER.24H PO STA
[2021-04-09] MEDS ORDERED: MELOXICAM 7.5 MG TAB PO PRN (10:45)
[2021-04-09] MEDS ORDERED: ACETAMINOPHEN TAB 500 MG TAB PO PRN (10:45)
[2021-04-09] MEDS ORDERED: TAMSULOSIN 0.4 MG CAP.ER.24H PO PRN (10:45)
[2021-04-09] MEDS ORDERED: GABAPENTIN 300 MG CAP PO PRN (10:45)
--- NOTE | 2021-04-09 10:48 | P.GSHP ---
History of Present Illness H&P Date: 04/09/21 CHIEF COMPLAINT: Cholecystitis HISTORY OF PRESENT ILLNESS: The patient is a 75-year-old male who presents with history of epigastric including right upper quadrant abdominal pain. He underwent diagnostic studies for his gallbladder. Separately his clinical picture was consistent with cholecystitis. Now he presents for surgical intervention. PAST MEDICAL HISTORY: Please see list PAST SURGICAL HISTORY: Please see list MEDICATIONS: Please see list ALLERGIES: Please see list SOCIAL HISTORY: Please see list FAMILY HISTORY: Please see list REVIEW OF ORGAN SYSTEMS: CONSTITUTIONAL: No reports of fevers or chills. HEENT: Denies any troubles with the vision or hearing. PHYSICAL EXAM: VITAL SIGNS: Afebrile vital signs stable GENERAL: Well-developed pleasant in no acute distress. HEENT: No scleral icterus. Extraocular movements grossly intact. Moist buccal mucosa. NECK: Supple without lymphadenopathy. CHEST: Unlabored respirations. Equal bilateral excursions. CARDIOVASCULAR: Regular rate regular rhythm rhythm. Distal 2+ pulses. ABDOMEN: Soft, nondistended. MUSCULOSKELETAL: No clubbing, cyanosis, or edema. NEURO: Cranial nerves II to XII within normal limits. No focal or lateralizing signs. PSYCH: Alert and oriented to person, place and time. SKIN: Well-perfused good skin turgor. ASSESSMENT: 1. Epigastric and right upper quadrant abdominal pain 2. Chronic cholecystitis 3. Symptomatic gallstones. PLAN: 1. Will need a robotic cholecystectomy possible open. Benefits and risks were described. 2. Heparin for DVT prophylaxis 5000 units. 3. Antibiotic prophylaxis. 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 Hx stomach ulcers. Gallstones currently History of Any Multi-Drug Resistant Organisms: None Reported Past Surgical History: Orthopedic Surgery, Tonsillectomy Additional Past Surgical History / Comment(s): Rt shoulder surgery, left wrist fusion, rt elbow surgery, bursa removed rt knee. EGD. COLONOSCOPY. Hiatal hernia repair. Past Anesthesia/Blood Transfusion Reactions: No Reported Reaction Smoking Status: Former smoker - Past Family History Father Family Medical History: Cancer, Deep Vein Thrombosis (DVT) Additional Family Medical History / Comment(s): THYROID CANCER Medications and Allergies Home Medications Medication Instructions Recorded Confirmed Type Aspirin [Adult Low Dose Aspirin EC] 81 mg PO DAILY 03/18/17 04/09/21 History Celecoxib [CeleBREX] 200 mg PO DAILY 03/18/17 04/09/21 History Cholecalciferol [Vitamin D3 (25 5,000 unit PO DAILY 03/18/17 04/09/21 History Mcg = 1000 Iu)] Montelukast [Singulair] 10 mg PO HS 03/18/17 04/09/21 History Multivitamins, Thera [Multivitamin 1 tab PO DAILY 03/18/17 04/09/21 History (formulary)] Sertraline [Zoloft] 25 mg PO HS 03/18/17 04/09/21 History Simvastatin [Zocor] 80 mg PO HS 03/18/17 04/09/21 History Ubidecarenone [Co Q-10] 400 mg PO DAILY 03/18/17 04/09/21 History Levothyroxine Sodium [Tirosint] 75 mcg PO DAILY 05/13/20 04/09/21 History [place]-3 Fatty Acids [[place]-3] 1,080 mg PO DAILY 04/03/21 04/09/21 History Allergies Allergy/AdvReac Type Severity Reaction Status Date / Time No Known Allergies Allergy Verified 04/09/21 10:34 Surgical - Exam Vital Signs Temp Pulse Resp BP Pulse Ox 97.3 F L 83 16 126/63 100 04/09/21 10:33 04/09/21 10:33 04/09/21 10:33 04/09/21 10:33 04/09/21 10:33
[2021-04-09 11:15] LABS: Basophils % (A) 1 %; Eosinophils # (A) 0.1 k/uL (0-0.7); Eosinophils % (A) 1 %; HCT 44.3 % (39.0-53.0); Lymphocytes % (A) 33 %; MCH 29.7 pg (25.0-35.0); MCHC 33.8 g/dL (31.0-37.0); MCV 87.7 fL (80.0-100.0); Mean Platelet Volume 6.7; Monocytes # (A) 0.5 k/uL (0-1.0); Monocytes % (A) 7 %; Neutrophils # (A) 3.3 k/uL (1.3-7.7); Neutrophils % (A) 55 %; Platelet Count 215 k/uL (150-450); RBC 5.05 m/uL (4.30-5.90); RDW 12.2 % (11.5-15.5); WBC 6.1 k/uL (3.8-10.6)
[2021-04-09 11:38] LABS: Albumin 4.1 g/dL (3.5-5.0); Calcium 9.7 mg/dL (8.4-10.2); Total Bilirubin 0.5 mg/dL (0.2-1.3); Total Protein 7.1 g/dL (6.3-8.2)
[2021-04-09] MEDS ORDERED: fentaNYL (PF) 50 MCG/ML 2 ML AMP ONE (13:00)
[2021-04-09] MEDS ORDERED: PROPOFOL 10 MG/ML 20 ML VIAL IV ONE (13:00)
[2021-04-09] MEDS ORDERED: SUCCINYLCHOLINE CHLORIDE 100 MG/5 ML SYR IV ONE (13:00)
[2021-04-09] MEDS ORDERED: ePHEDrine SULFATE/0.9% NACL/PF 50 MG/5 ML SYRINGE IV ONE (13:00)
[2021-04-09] MEDS ORDERED: GLYCOPYRROLATE 0.2 MG/ML 2 ML VIAL ONE (13:00)
[2021-04-09] MEDS ORDERED: ROCURONIUM 10 MG/ML (5 ML VIAL) IV ONE (13:00)
[2021-04-09] MEDS ORDERED: LIDOCAINE 1% INJ 10MG/ML (20 ML MDV) ONE (13:00)
[2021-04-09] MEDS ORDERED: PHENYLEPHRINE-0.9% NACL SYG 1,000 MCG/10 ML SYRINGE ONE (13:00)
[2021-04-09] MEDS ORDERED: NEOSTIGMINE 1 MG/ML 10 ML VIAL ONE (13:00)
[2021-04-09] MEDS ORDERED: LIDOCAINE 1%-EPI 1:100,000 20 ML VIAL SQ ONE (13:05)
[2021-04-09] MEDS ORDERED: LACTATED RINGERS 1,000 ML IV ONE (14:06)
--- NOTE | 2021-04-09 14:15 | P.OP ---
Date of Procedure: 04/09/21 Description of Procedure: SURGEON: GABRIELLA MICHAUD MD PREOPERATIVE DIAGNOSES: 1. Symptomatic gallstone 2. Right upper quadrant abdominal pain 3. Depressive disorder 4. Hyperlipidemia 5. Generalized osteoarthritis 6. Hypothyroidism POSTOPERATIVE DIAGNOSES: 1. Symptomatic gallstone 2. Right upper quadrant abdominal pain 3. Depressive disorder 4. Hyperlipidemia 5. Generalized osteoarthritis 6. Hypothyroidism 7. Chronic cholecystitis OPERATION: Robotic-assisted da Scott Xi laparoscopic cholecystectomy, multiport with FIREFLY ESTIMATED BLOOD LOSS: 5 mL. SPECIMENS REMOVED: Gallbladder. COMPLICATIONS: None. OPERATIVE FINDINGS: 1. Features of chronic cholecystitis INDICATIONS: The patient is a 75-year-old male who presents with symptomatic gallstones. Robotic assisted laparoscopic approach was described. Benefits and risks of the procedure including but not limited to bleeding, infection, injury to the biliary tree was described. Informed consent was obtained. DESCRIPTION OF PROCEDURE: Patient was brought to the operating room, placed in supine position. After general induction, the abdomen had been prepped and draped in standard sterile fashion. The robotic da Scott XI system was primed. After a timeout protocol was performed, the patient had been prepped and draped in standard sterile fashion. The patient was injected with indocyanine green. A 5 mm 0 degrees laparoscopic trocar entry was performed along the left upper quadrant. The abdomen insufflated to 15 mmHg pressure which was tolerated well. Diagnostic laparoscopy demonstrated no injury to bowel viscera or mesentery. The liver surface was unremarkable. Next, two 8 mm robotic ports were placed along the right upper abdomen. The camera 8-mm port was maintained along the epigastrium. Another 8 mm port was placed along the left upper abdominal wall after exchanging the 5 mm port. Please note that the ports were placed at least 10 to 15 cm away from the target anatomy of the gallbladder. The robot was docked along the left lateral abdomen. The patient was repositioned in reverse Trendelenburg position. Using a grasper for arm 3, a grasper for arm 4, including hook cautery for arm 1, the robotic system was docked and primed as described. Instruments were interchanged by the assurance assistant including hook cautery, Bovie cautery and clip appliers. I had sat at the console. Next attention was brought to the infundibulum and cystic structures. The infundibulum and cystic duct were dissected free from surrounding tissues. The cystic duct was isolated. FIREFLY was used to identify the cystic artery and cystic structures. A critical view of safety was obtained. Large PLASTIC clips were used throughout the entire case. Using a clip sewer bricklayer, 2 clips were placed at the junction of the infundibulum and cystic duct. The cystic duct was divided between clips. Next, the cystic artery was similarly clipped and cauterized. Electro-Bovie cautery was used to remove the gallbladder from the hepatic fossa. Hemostasis was checked and found to be adequate. The robot was undocked. I re-scrubbed into the case. Using a 10 mm Endo Catch bag via the left upper quadrant incision, the specimen was removed from the abdominal cavity. All pneumoperitoneum instruments were evacuated from the abdominal cavity. The incisions were reapproximated using 4-0 Monocryl in an interrupted subcuticular fashion. Fascial defects were less than 8 mm in size. Please note along the trocar sites, local anesthetic was placed as a field block prior to insertion of all instruments. Liquid glue was applied to the skin. At the end of the procedure needle, sponge, and instrument count had been verified correct by the surgical services director. The patient was transferred to postanesthesia care unit in stable condition. Intraoperative films were shared with the patient's family. Plan - Discharge Summary Discharge Rx Participant: No New Discharge Prescriptions: Continue Multivitamins, Thera [Multivitamin (formulary)] 1 tab PO DAILY Ubidecarenone [Co Q-10] 400 mg PO DAILY Cholecalciferol [Vitamin D3 (25 Mcg = 1000 Iu)] 5,000 unit PO DAILY Aspirin [Adult Low Dose Aspirin EC] 81 mg PO DAILY Montelukast [Singulair] 10 mg PO HS Simvastatin [Zocor] 80 mg PO HS Sertraline [Zoloft] 25 mg PO HS Celecoxib [CeleBREX] 200 mg PO DAILY Levothyroxine Sodium [Tirosint] 75 mcg PO DAILY [place]-3 Fatty Acids [[place]-3] 1,080 mg PO DAILY Discharge Medication List Aspirin [Adult Low Dose Aspirin EC] 81 mg PO DAILY 03/18/17 [History] Celecoxib [CeleBREX] 200 mg PO DAILY 03/18/17 [History] Cholecalciferol [Vitamin D3 (25 Mcg = 1000 Iu)] 5,000 unit PO DAILY 03/18/17 [History] Montelukast [Singulair] 10 mg PO HS 03/18/17 [History] Multivitamins, Thera [Multivitamin (formulary)] 1 tab PO DAILY 03/18/17 [History] Sertraline [Zoloft] 25 mg PO HS 03/18/17 [History] Simvastatin [Zocor] 80 mg PO HS 03/18/17 [History] Ubidecarenone [Co Q-10] 400 mg PO DAILY 03/18/17 [History] Levothyroxine Sodium [Tirosint] 75 mcg PO DAILY 05/13/20 [History] [place]-3 Fatty Acids [[place]-3] 1,080 mg PO DAILY 04/03/21 [History] Follow up Appointment(s)/Referral(s): Gabriella Michaud MD [STAFF PHYSICIAN] - 04/14/21 (Call to confirm time) Patient Instructions/Handouts: Laparoscopic Cholecystectomy (DC), Low Fat Diet (DC) Activity/Diet/Wound Care/Special Instructions: Recommend low-fat diet for the next 2 days. No lifting over 10 pounds in 2 weeks until April 23. May shower. No bath tub soaks for two weeks until April 23 Diet as tolerated. Use Tylenol, simethicone and ibuprofen or Aleve scheduled for the next 24-48 hours for best pain relief. Use ice along incisions for today to prevent swelling. Discharge Disposition: HOME SELF-CARE
[2021-04-09 14:25] VITALS: TEMP 97.1
[2021-04-09 15:34] VITALS: RESP 16
[2021-04-09 16:27] VITALS: BP 108/62; PULSE 82
== END 2021-04-09 16:43 | disposition home or self-care (01) ==
LOC: OR 10:17
PROVIDERS: ATTEND Surgery Plastic and Reconstructive Surgery
DX: K80.10 Calculus of gallbladder with chronic cholecystitis without obstruction (principal); E78.5 Hyperlipidemia, unspecified; E07.9 Disorder of thyroid, unspecified; K21.9 Gastro-esophageal reflux disease without esophagitis; E03.9 Hypothyroidism, unspecified; F32.9 Major depressive disorder, single episode, unspecified; Z86.73 Personal history of transient ischemic attack (TIA), and cerebral infarction without residual deficits; Z90.89 Acquired absence of other organs; Z98.890 Other specified postprocedural states; Z87.891 Personal history of nicotine dependence; Z87.11 Personal history of peptic ulcer disease; Z79.1 Long term (current) use of non-steroidal anti-inflammatories (NSAID); Z79.82 Long term (current) use of aspirin; Z79.890 Hormone replacement therapy; Z79.899 Other long term (current) drug therapy
CPT/HCPCS: 88304; 80053; 85025; 47562; J1100; J2710; J0690; J2405; J2001; J3010; J2370; J0330; J2704; J1170

== ENCOUNTER 2023-04-12 12:58 | Inpatient (IN) | payer MEDICARE, OTHER ==
[2023-04-12] MEDS ORDERED: NITROGLYCERIN OINT 1 INCH/GM PACKET TOPICAL STA (13:19)
[2023-04-12] MEDS ORDERED: ASPIRIN 81 MG PO STA (13:19)
--- NOTE | 2023-04-12 13:21 | ED ---
General Adult HPI - General Chief complaint: Chest Pain Stated complaint: abn EKG Time Seen by Provider: 04/12/23 13:15 Source: patient, RN notes reviewed, old records reviewed Mode of arrival: ambulatory Limitations: no limitations - History of Present Illness Initial comments: This is a 77-year-old male who has a past medical history significant for high cholesterol and does have a very strong family history of heart disease. Patient comes in today because he states about 3 months ago started having chest pain when he exerted himself doing cardio at the gym. Patient states that continued to happen until about last week when any kind of exertion lifting anything or walking started giving him chest pain. Patient states anytime he gets chest pain he also became somewhat short of breath and a little diaphoretic. Patient denies any radiation of the pain. Patient denies any abdominal pain patient denies any nausea vomiting or diarrhea. Patient denies any recent fever chills or cough per patient denies headache patient denies any near syncopal episode. Patient states currently he is pain-free - Related Data Home Medications Medication Instructions Recorded Confirmed Aspirin [Adult Low Dose Aspirin EC] 81 mg PO DAILY 03/18/17 04/09/21 Celecoxib [CeleBREX] 200 mg PO DAILY 03/18/17 04/09/21 Cholecalciferol [Vitamin D3 (25 5,000 unit PO DAILY 03/18/17 04/09/21 Mcg = 1000 Iu)] Montelukast [Singulair] 10 mg PO HS 03/18/17 04/09/21 Multivitamins, Thera [Multivitamin 1 tab PO DAILY 03/18/17 04/09/21 (formulary)] Sertraline [Zoloft] 25 mg PO HS 03/18/17 04/09/21 Simvastatin [Zocor] 80 mg PO HS 03/18/17 04/09/21 Ubidecarenone [Co Q-10] 400 mg PO DAILY 03/18/17 04/09/21 Levothyroxine Sodium [Tirosint] 75 mcg PO DAILY 05/13/20 04/09/21 [place]-3 Fatty Acids [[place]-3] 1,080 mg PO DAILY 04/03/21 04/09/21 Allergies Allergy/AdvReac Type Severity Reaction Status Date / Time No Known Allergies Allergy Verified 04/09/21 10:34 Review of Systems ROS Statement: Those systems with pertinent positive or pertinent negative responses have been documented in the HPI. ROS Other: All systems not noted in ROS Statement are negative. 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 Hx stomach ulcers. Gallstones currently History of Any Multi-Drug Resistant Organisms: None Reported Past Surgical History: Orthopedic Surgery, Tonsillectomy Additional Past Surgical History / Comment(s): Rt shoulder surgery, left wrist fusion, rt elbow surgery, bursa removed rt knee. EGD. COLONOSCOPY. Hiatal hernia repair. Past Anesthesia/Blood Transfusion Reactions: No Reported Reaction Past Psychological History: No Psychological Hx Reported Smoking Status: Former smoker - Past Family History Father Family Medical History: Cancer, Deep Vein Thrombosis (DVT) Additional Family Medical History / Comment(s): THYROID CANCER General Exam - General Exam Comments Initial Comments: GENERAL: Patient is well-developed and well-nourished. Patient is nontoxic and well- hydrated and is in no acute distress. ENT: Neck is soft and supple. No significant lymphadenopathy is noted. Oropharynx is clear. Moist mucous membranes. Neck has full range of motion without eliciting any pain. EYES: The sclera were anicteric and conjunctiva were pink and moist. Extraocular movements were intact and pupils were equal round and reactive to light. Eyelids were unremarkable. PULMONARY: Unlabored respirations. Good breath sounds bilaterally. No audible rales rhonchi or wheezing was noted. CARDIOVASCULAR: There is a regular rate and rhythm without any murmurs gallops or rubs. ABDOMEN: Soft and nontender with normal bowel sounds. SKIN: Skin is clear with no lesions or rashes and otherwise unremarkable. NEUROLOGIC: Patient is alert and oriented x3. Cranial nerves II through XII are grossly intact. Motor and sensory are also intact. Normal speech, volume and content. Symmetrical smile. MUSCULOSKELETAL: Normal extremities with adequate strength and full range of motion. No lower extremity swelling or edema. No calf tenderness. LYMPHATICS: No significant lymphadenopathy is noted PSYCHIATRIC: Normal psychiatric evaluation. Limitations: no limitations Course Vital Signs 04/12/23 13:08 Temperature 98 F Pulse Rate 75 Respiratory 16 Rate Blood Pressure 165/68 O2 Sat by Pulse 95 Oximetry Medical Decision Making - Medical Decision Making EKG was interpreted by myself EKG shows sinus rhythm at 77 bpm IA interval is on a 98 QRS is 79 QT interval 380 QTC is 419. Patient's EKG shows no ST segment elevation or depression. Was pt. sent in by a medical professional or institution ([facility], [employer], urgent care, hospital, or jail...) When possible be specific @ -[No] Did you speak to anyone other than the patient for history (EMS, parent, family, police, friend...)? What history was obtained from this source @ -[No] Did you review nursing and triage notes (agree or disagree)? Why? @ -[I reviewed and agree with nursing and triage notes] Were old charts reviewed (outside hosp., previous admission, EMS record, old EKG, old radiological studies, urgent care reports/EKG's, jail records)? Report findings @ -I reviewed prior lab work prior radiological studies on this patient and prior charting Differential Diagnosis (chest pain, altered mental status, abdominal pain women, abdominal pain men, vaginal bleeding, weakness, fever, dyspnea, syncope, headache, dizziness, GI bleed, back pain, seizure, CVA, palpatations, mental health, musculoskeletal)? @ -Differential Chest Pain: Stable Angina, Unstable Angina, STEMI, NSTEMI Aortic Dissection, Pneumothorax, Musculoskeletal, Esophageal Spasm GERD, Cholecystitis, Pancreatitis, Zoster, this is not meant to be an all-inclusive list. EKG interpreted by me (3pts min.). @ -[As above] X-rays interpreted by me (1pt min.). @ -Chest x-ray shows no acute abnormality CT interpreted by me (1pt min.). @ -[None done] U/S interpreted by me (1pt. min.). @ -[None done] What testing was considered but not performed or refused? (CT, X-rays, U/S, labs)? Why? @ -[None] What meds were considered but not given or refused? Why? @ -[None] Did you discuss the management of the patient with other professionals (professionals i.e. [facility], SWITCHBOX ASSEMBLER, lab, RT, psych nurse, high school social science teacher, splitter head, teacher, chief operating officer, rn case management)? Give summary @ -I spoke with Dr. Quigley she agreed to admit the patient admitted the patient Was smoking cessation discussed for >3mins.? @ -[No] Was critical care preformed (if so, how long)? @ -[No] Were there social determinants of health that impacted care today? How? (Homelessness, low income, unemployed, alcoholism, drug addiction, transportation, low edu. Level, literacy, decrease access to med. care, retirement, rehab)? @ -[No] Was there de-escalation of care discussed even if they declined (Discuss DNR or withdrawal of care, Hospice)? DNR status @ -[No] What co-morbidities impacted this encounter? (DM, HTN, Smoking, COPD, CAD, Cancer, CVA, ARF, Chemo, Hep., AIDS, mental health diagnosis, sleep apnea, morbid obesity)? @ -[None] Was patient admitted / discharged? Hospital course, mention meds given and route, prescriptions, significant lab abnormalities, going to OR and other pertinent info. @ -I spoke with Dr. Evans she agreed to admit the patient patient remained chest pain-free throughout his ED course labs are normal x-ray is normal and I consulted cardiology. Undiagnosed new problem with uncertain prognosis? @ -[No] Drug Therapy requiring intensive monitoring for toxicity (Heparin, Nitro, Insulin, Cardizem)? @ -[No] Were any procedures done? @ -[No] Diagnosis/symptom? @ -Chest pain Acute, or Chronic, or Acute on Chronic? @ -Acute Uncomplicated (without systemic symptoms) or Complicated (systemic symptoms)? @ -Complicated Side effects of treatment? @ -[No] Exacerbation, Progression, or Severe Exacerbation? @ -[No] Poses a threat to life or bodily function? How? (Chest pain, [place], PR, pneumonia, PE, COPD, DKA, ARF, appy, cholecystitis, CVA, Diverticulitis, Homicidal, Tiffanie cidal, threat to staff... and all critical care pts) @ -Yes this could be due to an PR which relieved and organ dysfunction - Lab Data Result diagrams: 04/12/23 13:29 04/12/23 13:29 Lab Results 04/12/23 04/12/23 04/12/23 Range/Units 13:29 13:29 13:29 WBC 6.2 (3.8-10.6) k/uL RBC 4.53 (4.30-5.90) m/uL Hgb 13.5 (13.0-17.5) gm/dL Hct 40.4 (39.0-53.0) % MCV 89.1 (80.0-100.0) fL MCH 29.9 (25.0-35.0) pg MCHC 33.5 (31.0-37.0) g/dL RDW 12.8 (11.5-15.5) % Plt Count 169 (150-450) k/uL MPV 7.9 Neutrophils % 61 % Lymphocytes % 28 % Monocytes % 6 % Eosinophils % 1 % Basophils % 0 % Neutrophils # 3.8 (1.3-7.7) k/uL Lymphocytes # 1.8 (1.0-4.8) k/uL Monocytes # 0.4 (0-1.0) k/uL Eosinophils # 0.1 (0-0.7) k/uL Basophils # 0.0 (0-0.2) k/uL PT 10.3 (9.0-12.0) sec INR 1.0 (<1.2) APTT 23.3 (22.0-30.0) sec Sodium 137 (137-145) mmol/L Potassium 4.1 (3.5-5.1) mmol/L Chloride 105 (98-107) mmol/L Carbon Dioxide 25 (22-30) mmol/L Anion Gap 7 mmol/L BUN 23 H (9-20) mg/dL Creatinine 0.93 (0.66-1.25) mg/dL Est GFR (CKD-EPI)AfAm >90 (>60 ml/min/1.73 sqM) Est GFR (CKD-EPI)NonAf 79 (>60 ml/min/1.73 sqM) Glucose 133 H (74-99) mg/dL Calcium 9.4 (8.4-10.2) mg/dL Magnesium 1.8 (1.6-2.3) mg/dL Total Bilirubin 1.0 (0.2-1.3) mg/dL AST 43 (17-59) U/L ALT 28 (4-49) U/L Alkaline Phosphatase 47 (38-126) U/L Troponin I (0.000-0.034) ng/mL Total Protein 7.5 (6.3-8.2) g/dL Albumin 4.2 (3.5-5.0) g/dL 04/12/23 Range/Units 13:29 WBC (3.8-10.6) k/uL RBC (4.30-5.90) m/uL Hgb (13.0-17.5) gm/dL Hct (39.0-53.0) % MCV (80.0-100.0) fL MCH (25.0-35.0) pg MCHC (31.0-37.0) g/dL RDW (11.5-15.5) % Plt Count (150-450) k/uL MPV Neutrophils % % Lymphocytes % % Monocytes % % Eosinophils % % Basophils % % Neutrophils # (1.3-7.7) k/uL Lymphocytes # (1.0-4.8) k/uL Monocytes # (0-1.0) k/uL Eosinophils # (0-0.7) k/uL Basophils # (0-0.2) k/uL PT (9.0-12.0) sec INR (<1.2) APTT (22.0-30.0) sec Sodium (137-145) mmol/L Potassium (3.5-5.1) mmol/L Chloride (98-107) mmol/L Carbon Dioxide (22-30) mmol/L Anion Gap mmol/L BUN (9-20) mg/dL Creatinine (0.66-1.25) mg/dL Est GFR (CKD-EPI)AfAm (>60 ml/min/1.73 sqM) Est GFR (CKD-EPI)NonAf (>60 ml/min/1.73 sqM) Glucose (74-99) mg/dL Calcium (8.4-10.2) mg/dL Magnesium (1.6-2.3) mg/dL Total Bilirubin (0.2-1.3) mg/dL AST (17-59) U/L ALT (4-49) U/L Alkaline Phosphatase (38-126) U/L Troponin I <0.012 (0.000-0.034) ng/mL Total Protein (6.3-8.2) g/dL Albumin (3.5-5.0) g/dL Disposition Clinical Impression: Chest pain Disposition: ADMITTED IP TO THIS HOSP Referrals: Kenrick Harrison MD [Primary Care Provider] - 1-2 days Time of Disposition: 14:46
[2023-04-12 13:51] LABS: Basophils % (A) 0 %; Eosinophils # (A) 0.1 k/uL (0-0.7); Eosinophils % (A) 1 %; HCT 40.4 % (39.0-53.0); HGB 13.5 gm/dL (13.0-17.5); Lymphocytes # (A) 1.8 k/uL (1.0-4.8); Lymphocytes % (A) 28 %; MCH 29.9 pg (25.0-35.0); MCHC 33.5 g/dL (31.0-37.0); MCV 89.1 fL (80.0-100.0); Mean Platelet Volume 7.9; Monocytes # (A) 0.4 k/uL (0-1.0); Monocytes % (A) 6 %; Neutrophils # (A) 3.8 k/uL (1.3-7.7); Neutrophils % (A) 61 %; Platelet Count 169 k/uL (150-450); RBC 4.53 m/uL (4.30-5.90); RDW 12.8 % (11.5-15.5); WBC 6.2 k/uL (3.8-10.6)
[2023-04-12 13:59] LABS: Partial Thromboplastin Time 23.3 sec (22.0-30.0); Prothrombin Time 10.3 sec (9.0-12.0)
[2023-04-12 14:04] LABS: ALT 28 U/L (4-49); AST 43 U/L (17-59); African American GFR (CKD) >90 (>60 ml/min/1.73 sqM); Albumin 4.2 g/dL (3.5-5.0); Alkaline Phosphatase 47 U/L (38-126); Anion Gap 7 mmol/L; Blood Urea Nitrogen 23 mg/dL (9-20); Calcium 9.4 mg/dL (8.4-10.2); Carbon Dioxide 25 mmol/L (22-30); Chloride 105 mmol/L (98-107); Glucose 133 mg/dL (74-99); Magnesium 1.8 mg/dL (1.6-2.3); Non-African American GFR(CKD) 79 (>60 ml/min/1.73 sqM); Sodium 137 mmol/L (137-145); Total Protein 7.5 g/dL (6.3-8.2)
[2023-04-12 14:07] LABS: Potassium 4.1 mmol/L (3.5-5.1)
--- NOTE | 2023-04-12 14:11 | XR ---
EXAMINATION TYPE: XR chest 2V DATE OF EXAM: 04/12/2023 1:55 PM COMPARISON: Chest radiographs from 05/16/2020 TECHNIQUE: XR chest 2V Frontal and lateral views of the chest. CLINICAL INDICATION:Male, 77 years old with history of Chest Pain; FINDINGS: Lungs/Pleura: There is no evidence of pleural effusion, focal consolidation, or pneumothorax. Pulmonary vascularity: Unremarkable. Heart/mediastinum: Cardiomediastinal silhouette is unremarkable. Musculoskeletal: No acute osseous pathology. IMPRESSION: No acute cardiopulmonary disease/process.
[2023-04-12] MEDS ORDERED: NITROGLYCERIN SL TABS 0.4 MG TAB SUBLINGUAL PRN (14:47)
[2023-04-12] MEDS ORDERED: HEPARIN SODIUM 1,000 UN/ML (10ML VL) IV ONE (17:51)
[2023-04-12] MEDS ORDERED: HEPARIN SODIUM 1,000 UN/ML (10ML VL) IV PRN (17:51)
[2023-04-12] MEDS ORDERED: MELATONIN 3 MG TABLET PO PRN (17:59)
[2023-04-12] MEDS ORDERED: ACETAMINOPHEN TAB 325 MG TAB PO PRN (17:59)
[2023-04-12] MEDS ORDERED: NALOXONE 0.4 MG/ML 1 ML VIAL IVP PRN (17:59)
[2023-04-12] MEDS ORDERED: ONDANSETRON 4 MG/2 ML VIAL IVP PRN (17:59)
[2023-04-12] MEDS ORDERED: HEPARIN SOD,PORK IN 0.45% NACL 25,000 UNIT in 0.45% NACL 1 250ML.BAG IV SCH (18:00)
--- NOTE | 2023-04-12 18:01 | P.HPIM ---
History of Present Illness H&P Date: 04/12/23 Patient is a 77-year-old male with a history of prior CVA 2, hypertension, dyslipidemia, and hypothyroidism who presented to the ER with complaints of chest pain. In the ER he underwent an extensive evaluation. His initial vital signs were within normal limits. Initial laboratory analysis was rather unremarkable. Initial troponin was negative area and repeat three-hour troponin was negative. EKG is reviewed by myself reveals normal sinus rhythm at a rate of 77 with normal axis, mild J-point elevation in leads V2 through V4 with no significant ST-T wave changes. His chest x-ray revealed no acute process. Ranges are made for observation. Cardiology was consulted. Patient seen and examined at bedside. Patient reports that for the last several months he had noted chest tightness with exertion at the gym. Over the last several weeks he has noted that this chest tightness now occurs with any exertion lasting greater than 5 minutes. He describes it as chest tightness across his chest without overt pain. It is associated with shortness of breath, some nausea and diaphoresis. He denies any numbness or tingling down his arm and up into his jaw. He has no history of any cardiac problems in the past. He does report that he has seen Dr. Ramirez for stress test prior to surgery. He reports that his last one was approximately one year ago. He did take an as pirin today. He does not have any significant smoking history. Vital signs reviewed General: nontoxic, no distress, appears at stated age Derm: warm, dry Eyes: EOMI, no lid lag, anicteric sclera, pupils equal round reactive to light ENT: Nose and ears atraumatic, no thrush, no pharyngeal erythema Cardiovascular: S1S2 reg, no murmur, 1+ pedal edema bilateral Lungs: clear to auscultation bilateral, no rhonchi, no rales, no wheeze, no accessory muscle use Abdominal: soft, nontender to palpation, no guarding, no appreciable organomegaly, normal bowel sounds Ext: no gross muscle atrophy, moving all 4 cavities independently, no contractures Neuro: CN II-XII grossly intact, no focal neuro deficits Psych: Alert, oriented, appropriate affect Assessment: Unstable angina -Serial troponins -Aspirin daily, start low intensity heparin protocol will need close monitoring for toxicity and therapeutic ranges PT PTT - Lipitor 40 mg -Add metoprolol 12.5 mg twice daily -Nothing by mouth after midnight -Cardiology consultation Dyslipidemia -Statin GERD -PPI Hypothyroidism -Synthroid Imaging: As per HPI Data Review: As per HPI The patient is admitted with an anticipated less than 2 midnight stay for evaluation of chest pain. Surrogate decision-maker: CODE STATUS:full, no prolonged mechanical ventilation DVT prophylaxis: heparin gtt Anticipated discharge date: Pending Clinical Course Anticipated discharge place: Pending Clinical Course This dictation was prepared using [employer] voice recognition software. Though every attempt is made to correct errors during dictation some may still exist. Past Medical History Past Medical History: CVA/TIA, GERD/Reflux, Hyperlipidemia, Thyroid Disorder Additional Past Medical History / Comment(s): CVA x 2 (1999 & 2001) - Problem wi th balance occ. Hx stomach ulcers. Gallstones currently History of Any Multi-Drug Resistant Organisms: None Reported Past Surgical History: Cholecystectomy, Orthopedic Surgery, Tonsillectomy Additional Past Surgical History / Comment(s): Rt shoulder surgery, left wrist fusion, rt elbow surgery, bursa removed rt knee. EGD. COLONOSCOPY. Hiatal hernia repair. Past Anesthesia/Blood Transfusion Reactions: No Reported Reaction Past Psychological History: No Psychological Hx Reported Additional Psychological History / Comment(s): . Smoking Status: Former smoker Past Alcohol Use History: None Reported Additional Past Alcohol Use History / Comment(s): started smoking pipe age 23, QUIT AT AGE 54 Past Drug Use History: None Reported - Past Family History Father Family Medical History: Cancer, Deep Vein Thrombosis (DVT) Additional Family Medical History / Comment(s): THYROID CANCER Medications and Allergies Home Medications Medication Instructions Recorded Confirmed Type Aspirin [Adult Low Dose Aspirin EC] 81 mg PO DAILY 03/18/17 04/12/23 History Montelukast [Singulair] 10 mg PO DAILY 03/18/17 04/12/23 History Multivitamins, Thera [Multivitamin 1 tab PO DAILY 03/18/17 04/12/23 History (formulary)] Sertraline [Zoloft] 25 mg PO HS 03/18/17 04/12/23 History Simvastatin [Zocor] 80 mg PO HS 03/18/17 04/12/23 History Ubidecarenone [Co Q-10] 400 mg PO DAILY 03/18/17 04/12/23 History Levothyroxine Sodium [Tirosint] 75 mcg PO DAILY 05/13/20 04/12/23 History [place]-3 Fatty Acids [[place]-3] 1,000 mg PO BID 04/03/21 04/12/23 History Cholecalciferol [Vitamin D3 (25 25 mcg PO DAILY 04/12/23 04/12/23 History Mcg = 1000 Iu)] Omeprazole [PriLOSEC] 40 mg PO DAILY 04/12/23 04/12/23 History Allergies Allergy/AdvReac Type Severity Reaction Status Date / Time No Known Allergies Allergy Verified 04/12/23 15:19 Physical Exam Osteopathic Statement: *. No significant issues noted on an osteopathic structural exam other than those noted in the History and Physical/Consult. Vitals: Vital Signs Temp Pulse Pulse Resp BP BP Pulse Ox 04/12/23 16:10 97.8 F 67 16 158/86 98 04/12/23 14:30 65 16 152/71 94 L 04/12/23 14:00 70 17 155/98 97 04/12/23 13:25 73 17 180/82 96 04/12/23 13:08 98 F 75 16 165/68 95 Intake and Output 04/12/23 04/12/23 04/12/23 06:59 14:59 22:59 Other: Weight 69.4 kg 69.4 kg Results CBC & Chem 7: 04/12/23 13:29 04/12/23 13:29 Labs: Abnormal Lab Results - Last 24 Hours (Table) 04/12/23 Range/Units 13:29 BUN 23 H (9-20) mg/dL Glucose 133 H (74-99) mg/dL
[2023-04-12] MEDS: SODIUM CHLORIDE 0.9% 1,000 ML IV SCH (18:53)
[2023-04-12] MEDS: NITROGLYCERIN OINT 1 INCH/GM PACKET TOPICAL SCH (18:53)
[2023-04-12] MEDS: METOPROLOL TARTRATE 12.5 MG TAB PO SCH (19:49)
[2023-04-12] MEDS: SERTRALINE 25 MG TAB PO SCH (19:50)
[2023-04-13] MEDS: NITROGLYCERIN OINT 1 INCH/GM PACKET TOPICAL SCH ×2 (00:12→05:35)
[2023-04-13] MEDS: LEVOTHYROXINE 75 MCG TAB PO SCH (05:41)
[2023-04-13] MEDS: SODIUM CHLORIDE 0.9% 1,000 ML IV SCH ×2 (06:09→20:16)
[2023-04-13 06:44] LABS: Prothrombin Time 10.6 sec (9.0-12.0)
[2023-04-13] MEDS ORDERED: ASPIRIN 325 MG TAB PO STA (08:19)
[2023-04-13] MEDS ORDERED: ALPRAZolam 0.25 MG TAB PO PRN (08:19)
[2023-04-13] MEDS ORDERED: ALPRAZolam 0.5 MG TAB PO PRN (08:19)
[2023-04-13] MEDS ORDERED: NITROGLYCERIN SL TABS 0.4 MG TAB SUBLINGUAL PRN (08:19)
[2023-04-13] MEDS ORDERED: ATORVASTATIN 80 MG TAB PO STA (08:19)
[2023-04-13 08:45] LABS: Basophils # (A) 0.02 X 10*3/uL (0.00-0.10); Basophils % (A) 0.3 %; Eosinophils # (A) 0.19 X 10*3/uL (0.04-0.35); Eosinophils % (A) 2.5 %; HGB 13.6 d/dL (12.0-15.0); Lymphocytes # (A) 2.72 X 10*3/uL (0.90-5.00); Lymphocytes % (A) 35.6 %; MCH 30.1 pg (27.0-32.0); MCV 88.5 FL (80.0-97.0); Mean Platelet Volume 10.2 FL (9.5-12.2); Monocytes # (A) 0.68 X 10*3/uL (0.20-1.00); Monocytes % (A) 8.9 %; NRBC Per 100 WBC 0 X 10*3/uL (0.00-0.01); Neutrophils # (A) 4.02 X 10*3/uL (1.80-7.70); Neutrophils % (A) 52.6 %; Platelet Count 180 X 10*3/uL (140-440); RBC 4.52 X 10*6/uL (4.40-5.60); RDW 12.4 % (11.5-14.5); WBC 7.64 X 10*3/uL (4.50-10.00)
[2023-04-13 08:48] LABS: Chol/HDL Ratio 3.15 Ratio; LDL Cholesterol,Calculated 117.5 mg/dL (0.0-131.0); VLDL Calculation 16.24 mg/dL (5.00-40.00)
[2023-04-13] MEDS: ASPIRIN 81 MG PO SCH (08:54)
[2023-04-13] MEDS: ATORVASTATIN 80 MG TAB PO SCH (08:54)
[2023-04-13] MEDS: METOPROLOL TARTRATE 12.5 MG TAB PO SCH ×2 (08:55→20:16)
[2023-04-13] MEDS: PANTOPRAZOLE 40 MG TABLET PO SCH (08:55)
[2023-04-13] MEDS: MONTELUKAST 10 MG TAB PO SCH (08:55)
[2023-04-13] MEDS ORDERED: ASPIRIN 325 MG TAB PO SCH (09:00)
--- NOTE | 2023-04-13 09:58 | P.CRDCN ---
History of Present Illness Consult date: 04/13/23 Consult reason: chest pain History of present illness: History of present illness: This is a 77 year old male patient with past medical history of dyslipidemia, history of tobacco use. We have been asked to evaluate the patient for chest pain. Patient was seen one time in the office with Dr. Ramirez for preop clearance for cholecystectomy in April 2020.we have been asked to evaluate the patient for chest pain. Patient states that about 3 months ago, he was walking on the treadmill and after about 5 minutes felt tightness in his chest so he stopped doing the treadmill. He then started doing only weights and subsequently last week started having tightness in his chest with this. He states he was on vacation last week and did a lot of walking and also was lifting a suitcase and felt tightness in his chest. No chest pain at the time of evaluation. Patient was started on full strength aspirin, heparin drip and admitted to the observation unit. EKG sinus rhythm with no acute ST changes. Chest x-ray:no acute process. CBC unremarkable. INR 1. Electrolytes normal. BUN 23 creatinine 0.93. Glucose 133. Troponins negative 3. Liver function tests normal. Magnesium 1.8. Home cardiac medications:aspirin 81 mg daily, levothyroxine 75 g daily, simvastatin 80 mg at bedtime echocardiogram 03/2020 revealed normal EF, mild TR, mild MR. Lexiscan stress test 02/2020 was normal EF and normal study. Review Of Systems: At the time of my evaluation: Constitutional: No fever, no chills. No weakness, fatigue or lethargy. EENT: No headache. No dizziness. Lungs: No shortness of breath, cough, no sputum production. No wheezing. Cardiovascular: No chest pain, no lower extremity edema. No palpitations. No paroxysmal nocturnal dyspnea. No orthopnea. No lightheadedness or dizziness. No syncopal episodes. Abdominal: No abdominal pain. No nausea, vomiting. No diarrhea. No constipation. No bloody or tarry stools. Musculoskeletal: No myalgias. No muscle weakness, no frequent falls. No back pain. No neck pain. Integumentary: No wounds. No rash. No unusual bruising. Neurologic: No aphasia. No facial droop. No change in mentation. No head injury. No headache. Physical examination: Gen: This is a 77-year-old male: No acute distress. VS: reviewed. 136/79, heart rate in the 60s, pulse ox 96% on room air. Afebri le. HEENT: Head is atraumatic, normocephalic. Pupils equal, round. Sclerae is anicteric. NECK: Supple. No JVD. . LUNGS: Clear to auscultation. No wheezes or rhonchi. No intercostal retractions. HEART: Regular rate and rhythm. No murmur. ABDOMEN: Soft No tenderness. EXTREMITIES: No pedal edema. No calf tenderness. NEUROLOGICAL: Patient is awake, alert and oriented x3. Assessment: Chest pain,concerning for angina Dyslipidemia Remote history of tobacco use Plan: Continue patient's current cardiac medications Change aspirin to 81 mg daily Discontinue heparin drip Schedule patient for cardiac catheterization today Obtain 2-D echocardiogram and Doppler study to assess cardiac structure and function Further recommendations to follow based upon clinical course Thank you kindly for this consultation. Nurse practitioner note has been reviewed, I agree with documented findings and plan of care. Patient was seen and examined. 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 Hx stomach ulcers. Gallstones currently History of Any Multi-Drug Resistant Organisms: None Reported Past Surgical History: Cholecystectomy, Orthopedic Surgery, Tonsillectomy Additional Past Surgical History / Comment(s): Rt shoulder surgery, left wrist fusion, rt elbow surgery, bursa removed rt knee. EGD. COLONOSCOPY. Hiatal hernia repair. Past Anesthesia/Blood Transfusion Reactions: No Reported Reaction Past Psychological History: No Psychological Hx Reported Additional Psychological History / Comment(s): . Smoking Status: Former smoker Past Alcohol Use History: None Reported Additional Past Alcohol Use History / Comment(s): started smoking pipe age 23, QUIT AT AGE 54 Past Drug Use History: None Reported - Past Family History Father Family Medical History: Cancer, Deep Vein Thrombosis (DVT) Additional Family Medical History / Comment(s): THYROID CANCER Medications and Allergies Home Medications Medication Instructions Recorded Confirmed Type Aspirin [Adult Low Dose Aspirin EC] 81 mg PO DAILY 03/18/17 04/12/23 History Montelukast [Singulair] 10 mg PO DAILY 03/18/17 04/12/23 History Multivitamins, Thera [Multivitamin 1 tab PO DAILY 03/18/17 04/12/23 History (formulary)] Sertraline [Zoloft] 25 mg PO HS 03/18/17 04/12/23 History Simvastatin [Zocor] 80 mg PO HS 03/18/17 04/12/23 History Ubidecarenone [Co Q-10] 400 mg PO DAILY 03/18/17 04/12/23 History Levothyroxine Sodium [Tirosint] 75 mcg PO DAILY 05/13/20 04/12/23 History [place]-3 Fatty Acids [[place]-3] 1,000 mg PO BID 04/03/21 04/12/23 History Cholecalciferol [Vitamin D3 (25 25 mcg PO DAILY 04/12/23 04/12/23 History Mcg = 1000 Iu)] Omeprazole [PriLOSEC] 40 mg PO DAILY 04/12/23 04/12/23 History Allergies Allergy/AdvReac Type Severity Reaction Status Date / Time No Known Allergies Allergy Verified 04/12/23 15:19 Physical Exam Vitals: Vital Signs Temp Pulse Pulse Resp BP BP BP 04/13/23 00:55 98.1 F 68 12 129/69 04/12/23 19:47 98.2 F 63 18 151/70 04/12/23 16:10 97.8 F 67 16 158/86 04/12/23 14:30 65 16 152/71 04/12/23 14:00 70 17 155/98 04/12/23 13:25 73 17 180/82 04/12/23 13:08 98 F 75 16 165/68 Pulse Ox 04/13/23 00:55 96 04/12/23 19:47 96 04/12/23 16:10 98 04/12/23 14:30 94 L 04/12/23 14:00 97 04/12/23 13:25 96 04/12/23 13:08 95 Intake and Output 04/12/23 04/13/23 04/13/23 22:59 06:59 14:59 Intake Total 118 107.917 Balance 118 107.917 Intake: Intake, IV Titration 107.917 Amount Heparin Sod,Pork in 0.45% 107.917 NaCl 25,000 unit In 0.45 % NaCl 1 250ml.bag @ 12 UNITS/KG/HR 8.328 mls/hr IV .Q24H [facility] Rx#: [id number] Oral 118 Other: # Voids 1 3 Weight 69.4 kg Results 04/13/23 05:35 04/12/23 13:29 Cardiac Enzymes 04/12/23 04/12/23 04/12/23 Range/Units 13: 13: 16:03 AST 43 (17-59) U/L Troponin I <0.012 <0.012 (0.000-0.034) ng/mL 04/12/23 Range/Units 19:10 AST (17-59) U/L Troponin I <0.012 (0.000-0.034) ng/mL Coagulation 04/12/23 04/12/23 04/13/23 Range/Units 13: 23:51 05:35 PT 10.3 10.6 (9.0-12.0) sec APTT 23.3 36.8 H (22.0-30.0) sec 04/13/23 Range/Units 05:35 PT (9.0-12.0) sec APTT 71.6 H (22.0-30.0) sec CBC 04/12/23 Range/Units 13:29 WBC 6.2 (3.8-10.6) k/uL RBC 4.53 (4.30-5.90) m/uL Hgb 13.5 (13.0-17.5) gm/dL Hct 40.4 (39.0-53.0) % Plt Count 169 (150-450) k/uL Comprehensive Metabolic Panel 04/12/23 Range/Units 13:29 Sodium 137 (137-145) mmol/L Potassium 4.1 (3.5-5.1) mmol/L Chloride 105 (98-107) mmol/L Carbon Dioxide 25 (22-30) mmol/L BUN 23 H (9-20) mg/dL Creatinine 0.93 (0.66-1.25) mg/dL Glucose 133 H (74-99) mg/dL Calcium 9.4 (8.4-10.2) mg/dL AST 43 (17-59) U/L ALT 28 (4-49) U/L Alkaline Phosphatase 47 (38-126) U/L Total Protein 7.5 (6.3-8.2) g/dL Albumin 4.2 (3.5-5.0) g/dL Current Medications Generic Name Dose Route Start Last Admin Trade Name Freq PRN Reason Stop Dose Admin Acetaminophen 650 mg 04/12/23 17:59 Acetaminophen Tab 325 Mg Tab PO Q6HR PRN Mild Pain or Fever > 100.5 Aspirin 325 mg 04/13/23 09:00 Aspirin 325 Mg Tab PO DAILY [facility] Atorvastatin Calcium 80 mg 04/13/23 09:00 Atorvastatin 80 Mg Tab PO DAILY [facility] Heparin Sodium (Porcine) 0 unit 04/12/23 17:51 04/13/23 00:38 Heparin Sodium 1,000 Un/Ml (10ml Vl) IV 1,735 unit PER PROTOCOL PRN Administration Low PTT Protocol Heparin Sodium/Sodium Chloride 250 mls @ 8.328 mls/hr 04/12/23 18:00 04/13/23 06:46 25,000 unit/ Sodium Chloride IV 14 units/kg/hr .Q24H [facility] 9.716 mls/hr Titration Protocol 12 UNITS/KG/HR Sodium Chloride 1,000 mls @ 75 mls/hr 04/12/23 18:00 04/13/23 06:09 Saline 0.9% IV Not Given .[id number] [facility] Levothyroxine Sodium 75 mcg 04/13/23 06:30 04/13/23 05:41 Levothyroxine 75 Mcg Tab PO 75 mcg 0630 [facility] Administration Melatonin 3 mg 04/12/23 17:59 Melatonin 3 Mg Tablet PO HS PRN Insomnia Metoprolol Tartrate 12.5 mg 04/12/23 21:00 04/12/23 19:49 Metoprolol Tartrate 12.5 Mg Tab PO 12.5 mg BID [facility] Administration Montelukast Sodium 10 mg 04/13/23 09:00 Montelukast 10 Mg Tab PO DAILY [facility] Naloxone HCl 0.2 mg 04/12/23 17:59 Naloxone 0.4 Mg/Ml 1 Ml Vial IVP Q2M PRN Opioid Reversal Nitroglycerin 0.4 mg 04/12/23 14:47 Nitroglycerin Sl Tabs 0.4 Mg Tab SUBLINGUAL Q5M PRN Chest Pain Nitroglycerin 1 inch 04/12/23 18:00 04/13/23 05:35 Nitroglycerin Oint 1 Inch/Gm Packet TOPICAL Not Given Q6HR [facility] Ondansetron HCl 4 mg 04/12/23 17:59 Ondansetron 4 Mg/2 Ml Vial IVP Q8HR PRN Nausea And Vomiting Pantoprazole Sodium 40 mg 04/13/23 09:00 Pantoprazole 40 Mg Tablet PO DAILY [facility] Sertraline HCl 25 mg 04/12/23 21:00 04/12/23 19:50 Sertraline 25 Mg Tab PO 25 mg HS [facility] Administration Intake and Output 04/12/23 04/13/23 04/13/23 22:59 06:59 14:59 Intake Total 118 107.917 Balance 118 107.917 Intake: Intake, IV Titration 107.917 Amount Heparin Sod,Pork in 0.45% 107.917 NaCl 25,000 unit In 0.45 % NaCl 1 250ml.bag @ 12 UNITS/KG/HR 8.328 mls/hr IV .Q24H [facility] Rx#: [id number] Oral 118 Other: # Voids 1 3 Weight 69.4 kg 04/12/23 13:29 04/12/23 13:29
--- NOTE | 2023-04-13 15:08 | P.PN ---
Subjective Progress Note Date: 04/13/23 (delayed charting seen at 0830) Patient is a 77-year-old male with a history of prior CVA 2, hypertension, dyslipidemia, and hypothyroidism who presented to the ER with complaints of ches t pain. In the ER he underwent an extensive evaluation. His initial vital signs were within normal limits. Initial laboratory analysis was rather unremarkable. Initial troponin was negative area and repeat three-hour troponin was negative. EKG is reviewed by myself reveals normal sinus rhythm at a rate of 77 with normal axis, mild J-point elevation in leads V2 through V4 with no significant ST-T wave changes. His chest x-ray revealed no acute process. Ranges are made for observation. Cardiology was consulted. He was placed on a heparin drip and beta puma. He was seen by cardiology and plan for this for cardiac catheterization Patient seen and examined at bedside. He denies any chest pain currently as he is laying flat. He has not been up and walking further than to the bathroom and back. Vital signs reviewed General: nontoxic, no distress, appears at stated age Cardiovascular: S1S2 reg, no murmur, positive posterior tibial pulse bilateral, Lungs: CTA bilateral, no rhonchi, no rales , no accessory muscle use Abdominal: soft, nontender to palpation, no guarding, no appreciable organomegaly Ext: no gross muscle atrophy, no edema b/l lower extremities, no contractures Neuro: CN II-XI grossly intact, no focal neuro deficits Psych: Alert, oriented, appropriate affect Assessment/Plan: Unstable angina -Serial troponins negative -Aspirin daily - recommend conitnuing heparin gtt given unstable angina, defer to cardiology - Lipitor 40 mg - metoprolol 12.5 mg twice daily - Nothing by mouth after midnight - Cardiology note reviewed: cardiac cath Dyslipidemia -Statin GERD -PPI Hypothyroidism -Synthroid Imaging: EKG reviewed with normal sinus rhythm at a rate of 88 continued J-point elevation in V2 V3 and V4 as well as leads 1 and 2. Data Review: Vital signs reviewed and temperature 98.2, pulse 68, respirations 14, blood pressure 136/79, O2 sat 96% on room air Laboratory analysis reviewed. CBC unremarkable, PTT 71.6, HDL 62.3 remainder cholesterol profile within normal Transition to inpatient status given diagnosis of unstable angina DVT prophylaxis: Heparin gtt Anticipated discharge date: Pending Clinical Course Anticipated discharge place: Pending Clinical Course This dictation was prepared using dragon medical voice recognition software. Though every attempt is made to correct errors during dictation some may still exist. Objective - Vital Signs Vital signs: Vital Signs Temp 98.1 F 04/13/23 14:37 Pulse 59 L 04/13/23 14:37 Resp 16 04/13/23 14:37 BP 155/74 04/13/23 14:37 Pulse Ox 99 04/13/23 14:37 FiO2 Intake & Output 04/12/23 04/13/23 04/13/23 18:59 06:59 18:59 Intake Total 118 107.917 Balance 118 107.917 Weight 69.4 kg Intake: Intake, IV Titration 107.917 Amount Heparin Sod,Pork in 0.45% 107.917 NaCl 25,000 unit In 0.45 % NaCl 1 250ml.bag @ 12 UNITS/KG/HR 8.328 mls/hr IV .Q24H [facility] Rx#: [id number] Oral 118 Other: # Voids 3 3 - Labs CBC & Chem 7: 04/13/23 05:35 04/12/23 13:29 Labs: Abnormal Lab Results - Last 24 Hours (Table) 04/12/23 04/13/23 04/13/23 Range/Units 23:51 05:35 05:35 APTT 36.8 H 71.6 H (22.0-30.0) sec HDL Cholesterol 62.30 H (40.00-60.00) mg/dL
[2023-04-13] MEDS: SERTRALINE 25 MG TAB PO SCH (20:16)
[2023-04-14] MEDS: LEVOTHYROXINE 75 MCG TAB PO SCH (06:26)
[2023-04-14] MEDS ORDERED: HEPARIN SODIUM,PORCINE 2,500 UNIT in SODIUM CHLORIDE 0.9% 250 ML IRRIGATION PRN (07:00)
[2023-04-14] MEDS ORDERED: HEPARIN SODIUM,PORCINE 10,000 UNIT in SODIUM CHLORIDE 0.9% 1,000 ML IRRIGATION PRN (07:00)
[2023-04-14 07:59] VITALS: RESP 16
[2023-04-14] MEDS ORDERED: ASPIRIN 325 MG TAB PO STA (08:12)
[2023-04-14] MEDS: PANTOPRAZOLE 40 MG TABLET PO SCH (08:14)
[2023-04-14] MEDS: METOPROLOL TARTRATE 12.5 MG TAB PO SCH (08:14)
[2023-04-14] MEDS: ATORVASTATIN 80 MG TAB PO SCH (08:14)
[2023-04-14] MEDS: ASPIRIN 81 MG PO SCH (08:15)
[2023-04-14] MEDS: MONTELUKAST 10 MG TAB PO SCH (08:15)
--- NOTE | 2023-04-14 10:04 | CA ---
Transthoracic Echo Report Name: Bong Asencio Age: 77 Gender: M : 1945 Exam Date: 04/13/2023 10:39 Exam Location: [facility] Ht (in): 62 Wt (lb): 153 Ordering Physician: Rebeca Ray Attending/Referring Phys: [id number], Flor Die Attacher Glen Rogers Procedure CPT: Indications: LVF Cardiac Hx: Technical Quality: Technically difficult study Contrast 1: Total Dose (mL): Contrast 2: Total Dose (mL): MEASUREMENTS (Male / Female) Normal Values 2D ECHO LV Diastolic Diameter PLAX 3.2 cm 4.2 - 5.9 / 3.9 - 5.3 cm LV Systolic Diameter PLAX 2.6 cm IVS Diastolic Thickness 0.9 cm 0.6 - 1.0 / 0.6 - 0.9 cm LVPW Diastolic Thickness 1.0 cm 0.6 - 1.0 / 0.6 - 0.9 cm LV Relative Wall Thickness 0.6 RV Internal Dim ED PLAX 2.2 cm LVOT Diameter 2.0 cm Aortic Root Diameter 3.0 cm LA Systolic Diameter LX 2.7 cm 3.0 - 4.0 / 2.7 - 3.8 cm LV Diastolic Volume MOD BP 54.5 cm??? 67 - 155 / 56 - 104 cm??? LV Systolic Volume MOD BP 12.4 cm??? 22 - 58 / 19 - 49 cm??? LV Ejection Fraction MOD BP 77.3 % >= 55 % LV Diastolic Volume MOD 4C 62.1 cm??? LV Systolic Volume MOD 4C 18.4 cm??? LV Ejection Fraction MOD 4C 70.4 % LV Diastolic Length 4C 7.9 cm LV Systolic Length 4C 5.8 cm LV Diastolic Volume MOD 2C 35.6 cm??? LV Systolic Volume MOD 2C 11.8 cm??? LV Ejection Fraction MOD 2C 67.0 % LV Diastolic Length 2C 5.8 cm LV Systolic Length 2C 5.9 cm LA Volume 24.6 cm??? 18 - 58 / 22 - 52 cm??? Ascending Aorta Diameter 2.7 cm DOPPLER AV Peak Velocity 109.4 cm/s AV Peak Gradient 4.8 mmHg LVOT Peak Velocity 112.3 cm/s LVOT Peak Gradient 5.0 mmHg AV Area Cont Eq pk 3.2 cm??? MR Peak Velocity 256.1 cm/s MR Peak Gradient 26.2 mmHg Mitral E Point Velocity 98.2 cm/s Mitral A Point Velocity 93.9 cm/s Mitral E to A Ratio 1.0 MV Deceleration Time 206.6 ms MV E' Velocity 8.1 cm/s Mitral E to MV E' Ratio 12.1 TR Peak Velocity 167.3 cm/s TR Peak Gradient 11.2 mmHg Right Ventricular Systolic Press 16.4 mmHg PV Peak Velocity 74.5 cm/s PV Peak Gradient 2.2 mmHg FINDINGS Left Ventricle Left ventricular ejection fraction is estimated at 55 %. Normal LV size. Normal wall thichness. Right Ventricle Normal right ventricular size. Right Atrium Normal right atrial size. Left Atrium Normal left atrial size. Mitral Valve Structurally normal mitral valve. Mild MR. Aortic Valve Trileaflet aortic valve. No aortic regurgitation. No aortic stenosis. Tricuspid Valve Structurally normal tricuspid valve. Mild TR. RVSP= 20mmhg Pulmonic Valve Pulmonic valve not well visualized. No pulmonic regurgitation. Pericardium Not well visualized however grossly normal . Aorta Aortic root and proximal ascending aorta not well visualized. CONCLUSIONS Normal LV size and systolic function. Mild mitral regurgitation. Mild tricuspid regurgitation. No pulmonary hypertension. No pericardial effusion Previewed by: Dr. Jaqueline Lunsford MD (Electronically Signed) Final Date: 14 April 2023 10:03
[2023-04-14] MEDS: SODIUM CHLORIDE 0.9% 1,000 ML IV SCH ×2 (10:15→20:51)
--- NOTE | 2023-04-14 10:19 | P.PN ---
Subjective Progress Note Date: 04/14/23 History of present illness: This is a 77 year old male patient with past medical history of dyslipidemia, history of tobacco use. We have been asked to evaluate the patient for chest pain. Patient was seen one time in the office with Dr. Ramirez for preop clearance for cholecystectomy in April 2020.we have been asked to evaluate the patient for chest pain. Patient states that about 3 months ago, he was walking on the treadmill and after about 5 minutes felt tightness in his chest so he stopped doing the treadmill. He then started doing only weights and subsequently last week started having tightness in his chest with this. He states he was on vacation last week and did a lot of walking and also was lifting a suitcase and felt tightness in his chest. No chest pain at the time of evaluation. Patient was started on full strength aspirin, heparin drip and admitted to the observation unit. EKG sinus rhythm with no acute ST changes. Chest x-ray:no acute process. CBC unremarkable. INR 1. Electrolytes normal. BUN 23 creatinine 0.93. Glucose 133. Troponins negative 3. Liver function tests normal. Magnesium 1.8. Home cardiac medications:aspirin 81 mg daily, levothyroxine 75 g daily, simvastatin 80 mg at bedtime echocardiogram 03/2020 revealed normal EF, mild TR, mild MR. Lexiscan stress test 02/2020 was normal EF and normal study. 04/14 Patient is scheduled for cardiac catheterization today with Dr. Ramirez. Patient has no chest pain and no events overnight. Echocardiogram reveals normal LV size and systolic function. Mild mitral regurgitation. Mild tricuspid regurgitation. No pulmonary hypertension. No pericardial effusion. Physical examination: Gen: This is a 77-year-old male: No acute distress. VS: reviewed. 170/70, heart rate in the 70s, pulse ox 98% on room air. Afebrile. Assessment: Chest pain,concerning for angina Dyslipidemia Remote history of tobacco use Plan: Continue patient's current cardiac medications Change aspirin to 81 mg daily Discontinue heparin drip Schedule patient for cardiac catheterization today Further recommendations to follow based upon clinical course Nurse practitioner note has been reviewed, I agree with documented findings and plan of care. Patient was seen and examined. Objective - Vital Signs Vital signs: Vital Signs Temp 98.1 F 04/14/23 07:00 Pulse 73 04/14/23 08:00 Resp 16 04/14/23 08:00 BP 170/70 04/14/23 07:00 Pulse Ox 98 04/14/23 07:00 FiO2 Intake & Output 04/13/23 04/14/23 04/14/23 18:59 06:59 18:59 Other: Voiding Method Toilet # Voids 3 1 - Labs CBC & Chem 7: 04/13/23 05:35 04/12/23 13:29
[2023-04-14] MEDS ORDERED: VERAPAMIL 2.5 MG/ML 2 ML AMP ONE (11:02)
[2023-04-14] MEDS ORDERED: fentaNYL (PF) 50 MCG/ML 2 ML AMP ONE (11:22)
[2023-04-14] MEDS ORDERED: IV FLUID CONTINUATION 1,000 ML IV ONE (11:23)
[2023-04-14] MEDS ORDERED: fentaNYL (PF) 50 MCG/1 ML VIAL IV ONE (11:44)
[2023-04-14] MEDS ORDERED: LIDOCAINE 1% INJ 10MG/ML (5 ML VIAL-PF) IV ONE (11:45)
[2023-04-14] MEDS: HEPARIN SODIUM 1,000 UN/ML (10ML VL) IV ONE ×2 (11:47→12:00)
[2023-04-14] MEDS ORDERED: VERAPAMIL SYRINGE (5 MG/10 ML) INTRAARTER ONE (11:47)
[2023-04-14] MEDS ORDERED: MIDAZOLAM 2 MG/2 ML VIAL IV ONE ×2 (11:53)
[2023-04-14] MEDS ORDERED: CLOPIDOGREL 75 MG TAB ONE (11:58)
[2023-04-14] MEDS ORDERED: CLOPIDOGREL 75 MG TAB PO ONE (12:02)
[2023-04-14] MEDS: NITROGLYCERIN 1000MCG/10ML SYRINGE INTRACORON ONE ×2 (12:07→12:23)
[2023-04-14] MEDS ORDERED: IOPAMIDOL-370 100ML BTL INJ ONE (12:07)
[2023-04-14] MEDS ORDERED: IOPAMIDOL-370 125ML BTL INJ ONE (12:28)
[2023-04-14] MEDS ORDERED: ATROPINE SULFATE 0.1 MG/ML 10ML SYRINGE IV PRN (12:45)
[2023-04-14] MEDS ORDERED: RX INFO: IV CONTRAST WAS GIVEN 1 EACH MISC MISCELLANE PRN (12:45)
[2023-04-14] MEDS ORDERED: SODIUM CHLORIDE 0.9% 1,000 ML in EMPTY BAG 1 BAG IV SCH (12:45)
[2023-04-14] MEDS ORDERED: NITROGLYCERIN SL TABS 0.4 MG TAB SUBLINGUAL PRN (12:45)
[2023-04-14] MEDS ORDERED: ZOLPIDEM 5 MG TAB PO PRN (12:45)
[2023-04-14] MEDS ORDERED: MAG HYDROX/AL HYDROX/SIMETH 30 ML CUP PO PRN (12:45)
--- NOTE | 2023-04-14 12:56 | P.CARDCATH ---
Date of Procedure: 04/14/23 Description of Procedure: Cardiac Catheterization: The patient is a 78-year-old male with a history of hyperlipidemia who presented with worsening progressive exertional chest discomfort relieved with rest. His cardiac enzymes and EKG showed no acute changes. Recommendations were made regarding cardiac catheterization, the risks and the complications were discussed with the patient who is in full understanding and agreement. Procedure Description: Patient was brought to optical laboratory mechanic in fasting semi-sedated state after receiving Fentanyl and Benadryl achieiving moderate conscious sedated state. Using Xylocaine Anesthesia and Seldinger technique, a 6-Sammarinese sheath was introduced in the right radial artery . Subsequently, selective coronary angiography was performed using a 5-Sammarinese 3.5 bend Leanne catheter. Multiple views of the coronary artery including hemiaxial views were obtained. The right Leanne catheter was used to cross the aortic valve and LVEDP was calculated. PCI: After removing the catheters 6-Sammarinese EBU 3.75 guiding catheter was introduced in the system and after cannulating the left main a 0.014 BMW J-wire was positioned in the distal left circumflex. Subsequently a 2.25 x 12 mm Treck was advanced and one inflation at 10 regine was done, after removing the balloon 2.5 X 12 mm Xience home point stent was deployed at 14 regine. Subsequently the wire was removed and images were obtained that revealed stable successful stenting, subsequently the wire was introduced in the distal LAD and a 2.25 x 12 mm balloon was introduced and one inflation at 8 regine distally was done, after removing the balloon a 2.5 x 15 mm Xience home point stent was deployed at 14 regine. After removing the balloon and the wire images were obtained and revealed stable successful stenting. Following that, catheter and sheath were removed. Hemostasis was obtained with deployment of TR band . There was no immediate complication. Patient was returned to room in stable condition. Of note, the patient received a total of 5500 units of intravenous heparin as well as intra- arterial verapamil. He received an oral loading dose of clopidogrel. He had chest discomfort with the inflations of the left circumflex that resolved at the end of the procedure. His ACT was monitored. Findings: Fluoroscopy: Calcifications of the LAD was noted Left main: This is a large-size vessel, bifurcating into left circumflex and LAD, the left main has 10-20% plaque LAD: This is a large-size vessel patient to the apex, giving rise to 2 diagonal branch. The mid segment at the bifurcation of the diagonal branch there is a 30-40% plaque involving the LAD and a 60-70% plaque involving the takeoff of the diagonal branch. At the distal segment prior to the apex is a 99% stenosis, the rest of the vessel has no high-grade stenosis. Left circumflex: This is nondominant vessel giving rise to a very proximal obtuse marginal branch that has a 40-50% stenosis proximally, the left circumflex beyond that has a 95% stenosis before giving rise to the second obtuse marginal branch. RCA: This is a dominant vessel, moderate in caliber, giving rise to a PDA. The right coronary artery has mild intimal disease distally of 10-20% Left Ventriculogram: Not performed Hemodynamics: There was no gradient across the aortic valve, LVEDP was 16-20 mmHg Conclusion: 1. Calcified proximal LAD 2. Severe stenosis in the proximal left circumflex 3. Severe stenosis in the distal LAD with mild to moderate disease in the mid LAD 4. Mild disease in the RCA 5. Successful stenting of the proximal left circumflex with reduction of stenosis from 95% to 0% 6. Successful stenting of the distal LAD with reduction of stenosis from 99% to 0% Recommendations: The patient will continue on aspirin and clopidogrel without any interruption for 6 months in addition to aggressive coronary risks modifications. The findings and the recommendations were discussed with the patient and the family and they were in full understanding and agreement. Duration of sedation is 48 minutes.
--- NOTE | 2023-04-14 14:36 | P.PN ---
Subjective Progress Note Date: 04/14/23 Hospital Course: Patient is a 77-year-old male with a history of prior CVA 2, hypertension, dyslipidemia, and hypothyroidism who presented to the ER with complaints of chest pain. In the ER he underwent an extensive evaluation. His initial vital signs were within normal limits. Initial laboratory analysis was rather unremarkable. Initial troponin was negative area and repeat three-hour troponin was negative. EKG shows normal sinus rhythm at a rate of 77 with normal axis, mild J-point elevation in leads V2 through V4 with no significant ST-T wave changes. His chest x-ray revealed no acute process. Cardiology was consulted. He was placed on a heparin drip and beta puma. Cardiac cath shows severe stenosis in proximal left circumflex status post stent, severe stenosis in the distal LAD status post stent. Started on dual antiplatelet therapy. Echocardiogram shows normal LV size and systolic function. Subjective: Patient seen and examined at bedside. No acute events overnight. Denies any further chest pain, shortness of breath. Pertinent positives and negatives as discussed above, a complete review of systems was performed and all other systems are negative. Vitals Signs Reviewed. General: nontoxic, no distress, appears at stated age Derm: warm, dry Head: atraumatic, normocephalic, symmetric Eyes: EOMI, no lid lag, anicteric sclera Mouth: no lip lesion, mucus membranes moist Cardiovascular: S1S2 reg, no murmur Lungs: CTA bilateral, no rhonchi, no rales , no accessory muscle use Abdominal: soft, nontender to palpation, no guarding, no appreciable organomegaly Ext: no gross muscle atrophy, no edema, no contractures Neuro: CN II-XI grossly intact, no focal neuro deficits Psych: Alert, oriented, appropriate affect Data Reviewed Today: Pertinent Labs: Total cholesterol 196, LDL 117 Imaging: No new imaging Assessment and Plan: Active: Angina Coronary artery disease status post stents Dyslipidemia -Cath Report reviewed, stent placed in proximal left circumflex, and distal LAD -Continue aspirin 81 mg, atorvastatin 80 mg, Plavix 75 mg daily -Cardiology following Chronic: Hypothyroidism Depression/anxiety DVT ppx: Subcu heparin Code status: Full code Anticipated discharge place: Home Anticipated discharge time: 1-2 days Objective - Vital Signs Vital signs: Vital Signs Temp 97.4 F L 04/14/23 12:46 Pulse 56 L 04/14/23 13:57 Resp 16 04/14/23 13:57 BP 142/62 04/14/23 13:31 Pulse Ox 99 04/14/23 13:31 FiO2 Intake & Output 04/13/23 04/14/23 04/14/23 18:59 06:59 18:59 Intake Total 200 Balance 200 Intake: IV 200 Other: Voiding Method Toilet # Voids 3 1 3 - Labs CBC & Chem 7: 04/13/23 05:35 04/12/23 13:29
[2023-04-14 15:11] VITALS: BMI 28.0
[2023-04-14] MEDS: HEPARIN SODIUM,PORCINE/PF 5,000 UNIT/0.5 ML SYRINGE SQ SCH ×2 (17:56→22:12)
[2023-04-14] MEDS: SERTRALINE 25 MG TAB PO SCH (20:51)
[2023-04-14] MEDS: METOPROLOL TARTRATE 25 MG TAB PO SCH (20:51)
[2023-04-15] MEDS: LEVOTHYROXINE 75 MCG TAB PO SCH (06:02)
[2023-04-15 08:12] LABS: African American GFR (CKD) 74 (>60 ml/min/1.73 sqM); Anion Gap 6 mmol/L; Blood Urea Nitrogen 16 mg/dL (9-20); Calcium 9.1 mg/dL (8.4-10.2); Carbon Dioxide 26 mmol/L (22-30); Chloride 107 mmol/L (98-107); Glucose 94 mg/dL (74-99); Non-African American GFR(CKD) 64 (>60 ml/min/1.73 sqM); Potassium 4.2 mmol/L (3.5-5.1); Sodium 139 mmol/L (137-145)
[2023-04-15] MEDS: MONTELUKAST 10 MG TAB PO SCH (08:49)
[2023-04-15] MEDS: ATORVASTATIN 80 MG TAB PO SCH (08:49)
[2023-04-15] MEDS: ASPIRIN 81 MG PO SCH (08:49)
[2023-04-15] MEDS: PANTOPRAZOLE 40 MG TABLET PO SCH (08:49)
[2023-04-15] MEDS: HEPARIN SODIUM,PORCINE/PF 5,000 UNIT/0.5 ML SYRINGE SQ SCH (08:50)
[2023-04-15] MEDS: METOPROLOL TARTRATE 25 MG TAB PO SCH (08:50)
[2023-04-15 08:59] VITALS: BP 133/57; PULSE 72; TEMP 98.5
[2023-04-15] MEDS ORDERED: CLOPIDOGREL 75 MG TAB PO SCH (09:00)
--- NOTE | 2023-04-15 10:27 | P.PN ---
Subjective Progress Note Date: 04/15/23 History of present illness: This is a 77 year old male patient with past medical history of dyslipidemia, history of tobacco use. We have been asked to evaluate the patient for chest pain. Patient was seen one time in the office with Dr. Ramirez for preop clearance for cholecystectomy in April 2020.we have been asked to evaluate the patient for chest pain. Patient states that about 3 months ago, he was walking on the treadmill and after about 5 minutes felt tightness in his chest so he stopped doing the treadmill. He then started doing only weights and subsequently last week started having tightness in his chest with this. He states he was on vacation last week and did a lot of walking and also was lifting a suitcase and felt tightness in his chest. No chest pain at the time of evaluation. Patient was started on full strength aspirin, heparin drip and admitted to the observation unit. EKG sinus rhythm with no acute ST changes. Chest x-ray:no acute process. CBC unremarkable. INR 1. Electrolytes normal. BUN 23 creatinine 0.93. Glucose 133. Troponins negative 3. Liver function tests normal. Magnesium 1.8. Home cardiac medications:aspirin 81 mg daily, levothyroxine 75 g daily, simvastatin 80 mg at bedtime echocardiogram 03/2020 revealed normal EF, mild TR, mild MR. Lexiscan stress test 02/2020 was normal EF and normal study. 04/14 Patient is scheduled for cardiac catheterization today with Dr. Ramirez. Patient has no chest pain and no events overnight. Echocardiogram reveals normal LV size and systolic function. Mild mitral regurgitation. Mild tricuspid regurgitation. No pulmonary hypertension. No pericardial effusion. 04/15 Yesterday, patient underwent cardiac catheterization with Dr. Ramirez which revealed calcified proximal LAD, severe stenosis of the proximal left circumflex, severe stenosis in the distal LAD with mild to moderate disease in the mid LAD, mild disease in the RCA. Patient underwent successful stenting of the proximal left circumflex and the distal LAD. Patient was started on aspirin and Plavix to continue for a 6 month without interruption. Patient denies having any chest pain or shortness of breath this morning. No lightheadedness o r dizziness. He has been ambulating. He has been afebrile, heart rate in the 70s, blood pressure 133/57, pulse ox 90% on room air. Repeat blood work this morning reveals BUN of 16 creatinine 1.09, potassium 4.2. Physical examination: Gen: This is a 77-year-old male: No acute distress. HEENT: Head is atraumatic, normocephalic. Pupils equal, round. Sclerae is anicteric. LUNGS: Clear to auscultation. No wheezes or rhonchi. No intercostal retractions. HEART: Regular rate and rhythm. No murmur. EXTREMITIES: No pedal edema. Right wrist, no hematoma, no bleeding NEUROLOGICAL: Patient is awake, alert and oriented x3. Assessment: Chest pain secondary to coronary artery disease status post stenting of the proximal left circumflex and distal LAD 04/14 Dyslipidemia Remote history of tobacco use Plan: Continue patient's current cardiac medications, prescriptions have been sent to his pharmacy Patient is cleared for him cardiology for discharge home. He may follow up with Dr. Ramirez in one week. Nurse practitioner note has been reviewed, I agree with documented findings and plan of care. Patient was seen and examined. Objective - Vital Signs Vital signs: Vital Signs Temp 98.4 F 04/15/23 02:00 Pulse 76 04/15/23 02:00 Resp 16 04/15/23 02:00 BP 137/76 04/15/23 02:00 Pulse Ox 97 04/15/23 02:00 FiO2 Intake & Output 04/14/23 04/15/23 04/15/23 18:59 06:59 18:59 Intake Total 200 Balance 200 Weight 69.4 kg Intake: IV 200 Other: Voiding Method Toilet Toilet # Voids 3 2 - Labs CBC & Chem 7: 04/13/23 05:35 04/15/23 06:59
--- NOTE | 2023-04-15 13:35 | P.DS ---
Providers Date of admission: 04/12/23 14:48 Expected date of discharge: 04/15/23 Attending physician: Marylou Quigley, DO Consults: 04/12/23 14:47 Consult Physician Urgent Consulting Provider: Krishna Prater Consult Reason/Comments: Chest pain Do you want consulting provider notified?: Yes 04/14/23 12:46 Consult Physician Routine Consulting Provider: Krishna Prater Consult Reason/Comments: Post Interventional patient Do you want consulting provider notified?: Already Contacted Primary care physician: Kenrick Harrison [facility] Course: Discharge Diagnosis: Angina Coronary artery disease status post stents Dyslipidemia Hospital Course: Patient is a 77-year-old male with a history of prior CVA 2, hypertension, dyslipidemia, and hypothyroidism who presented to the ER with complaints of chest pain. In the ER he underwent an extensive evaluation. His initial vital signs were within normal limits. Initial laboratory analysis was rather un remarkable. Initial troponin was negative area and repeat three-hour troponin was negative. EKG shows normal sinus rhythm at a rate of 77 with normal axis, mild J-point elevation in leads V2 through V4 with no significant ST-T wave changes. His chest x-ray revealed no acute process. Cardiology was consulted. He was placed on a heparin drip and beta puma. Cardiac cath shows severe stenosis in proximal left circumflex status post stent, severe stenosis in the distal LAD status post stent. Started on dual antiplatelet therapy. Echocardiogram shows normal LV size and systolic function. Patient to follow-up with cardiology in 1 week. Patient seen and examined at bedside. Vital signs reviewed and stable. General: nontoxic, no distress, appears at stated age Derm: warm, dry Head: atraumatic, normocephalic, symmetric Eyes: EOMI, no lid lag, anicteric sclera Mouth: no lip lesion, mucus membranes moist Cardiovascular: S1S2 reg, no murmur Lungs: CTA bilateral, no rhonchi, no rales , no accessory muscle use Abdominal: soft, nontender to palpation, no guarding, no appreciable organomegaly Ext: no gross muscle atrophy, no edema, no contractures Neuro: CN II-XI grossly intact, no focal neuro deficits Psych: Alert, oriented, appropriate affect A total of 33 minutes of time were spent preparing this complex discharge summary. Patient was discharged on 04/15/23 at 0953. Patient Condition at Discharge: Stable Plan - Discharge Summary New Discharge Prescriptions: New Metoprolol Tartrate [Lopressor] 25 mg PO BID #180 tab Clopidogrel [Plavix] 75 mg PO DAILY #90 tab Atorvastatin [Lipitor] 80 mg PO DAILY #90 tab Continue Multivitamins, Thera [Multivitamin (formulary)] 1 tab PO DAILY Ubidecarenone [Co Q-10] 400 mg PO DAILY Aspirin [Adult Low Dose Aspirin EC] 81 mg PO DAILY Montelukast [Singulair] 10 mg PO DAILY Sertraline [Zoloft] 25 mg PO HS Levothyroxine Sodium [Tirosint] 75 mcg PO DAILY [place]-3 Fatty Acids [[place]-3] 1,000 mg PO BID Cholecalciferol [Vitamin D3 (25 Mcg = 1000 Iu)] 25 mcg PO DAILY Omeprazole [PriLOSEC] 40 mg PO DAILY Discontinued Simvastatin [Zocor] 80 mg PO HS Discharge Medication List Aspirin [Adult Low Dose Aspirin EC] 81 mg PO DAILY 03/18/17 [History] Montelukast [Singulair] 10 mg PO DAILY 03/18/17 [History] Multivitamins, Thera [Multivitamin (formulary)] 1 tab PO DAILY 03/18/17 [History] Sertraline [Zoloft] 25 mg PO HS 03/18/17 [History] Ubidecarenone [Co Q-10] 400 mg PO DAILY 03/18/17 [History] Levothyroxine Sodium [Tirosint] 75 mcg PO DAILY 05/13/20 [History] [place]-3 Fatty Acids [[place]-3] 1,000 mg PO BID 04/03/21 [History] Cholecalciferol [Vitamin D3 (25 Mcg = 1000 Iu)] 25 mcg PO DAILY 04/12/23 [History] Omeprazole [PriLOSEC] 40 mg PO DAILY 04/12/23 [History] Atorvastatin [Lipitor] 80 mg PO DAILY #90 tab 04/15/23 [Rx] Clopidogrel [Plavix] 75 mg PO DAILY #90 tab 04/15/23 [Rx] Metoprolol Tartrate [Lopressor] 25 mg PO BID #180 tab 04/15/23 [Rx] Follow up Appointment(s)/Referral(s): Wagner Ramirez MD [STAFF PHYSICIAN] - 1 Week (Office will call with appointment time and date.) Kenrick Harrison MD [Primary Care Provider] - 1-2 days Patient Instructions/Handouts: Angina (DC), Coronary Artery Disease (DC), After Radial Heart Catheterization (GEN) Activity/Diet/Wound Care/Special Instructions: PLease see your PCP and hot bread baker. Discharge Disposition: HOME SELF-CARE
== END 2023-04-15 11:40 | disposition home or self-care (01) | DRG 247 ==
LOC: EC 12:58 → OBSVTOIN 14:48 → 6NMEDSUR 14:48
PROVIDERS: ADMIT Internal Medicine; ATTEND Internal Medicine
PROC: 4A023N7 Measurement of Cardiac Sampling and Pressure, Left Heart, Percutaneous Approach (ICD-10-PCS; principal; 2023-04-14 12:00)
PROC: B2111ZZ Fluoroscopy of Multiple Coronary Arteries using Low Osmolar Contrast (ICD-10-PCS; principal; 2023-04-14 12:00)
PROC: 027135Z Dilation of Coronary Artery, Two Arteries with Two Drug-eluting Intraluminal Devices, Percutaneous Approach (ICD-10-PCS; principal; 2023-04-14 12:00)
DX: I25.110 Atherosclerotic heart disease of native coronary artery with unstable angina pectoris (principal); K21.9 Gastro-esophageal reflux disease without esophagitis; I10 Essential (primary) hypertension; F41.9 Anxiety disorder, unspecified; F32.A Depression, unspecified; E78.5 Hyperlipidemia, unspecified; E03.9 Hypothyroidism, unspecified; Z87.891 Personal history of nicotine dependence; Z87.11 Personal history of peptic ulcer disease; Z86.73 Personal history of transient ischemic attack (TIA), and cerebral infarction without residual deficits; Z79.899 Other long term (current) drug therapy; Z79.890 Hormone replacement therapy; Z79.82 Long term (current) use of aspirin; Z79.1 Long term (current) use of non-steroidal anti-inflammatories (NSAID)
CPT/HCPCS: 36415; 71046; 80048; 80053; 80061; 83735; 84484; 85025; 85610; 85730; 93005; 93306; 93458; 94760; 99285

== ENCOUNTER → 2023-06-15 | Outpatient (CLI) | payer MEDICARE, OTHER ==
[2023-06-15 15:29] LABS: ALT 20 U/L (10-49); AST 22 U/L (14-35); Albumin 4.5 d/dL (3.8-4.9); Albumin/Globulin Ratio 1.61 Ratio (1.60-3.17); Alkaline Phosphatase 61 U/L (41-126); BUN/Creat Ratio 19.55 Ratio (12.00-20.00); Blood Urea Nitrogen 21.5 mg/dL (9.0-27.0); Calcium 10.3 mg/dL (8.7-10.3); Carbon Dioxide 27.3 mmol/L (21.6-31.8); Chloride 105 mmol/L (96-109); Chol/HDL Ratio 3.24 Ratio; Globulin 2.8 d/dL (1.6-3.3); Glucose 108 mg/dL (70-110); LDL Cholesterol,Calculated 91.8 mg/dL (0.0-131.0); Potassium 5.3 mmol/L (3.5-5.5); Sodium 142 mmol/L (135-145); Total Bilirubin 0.4 mg/dL (0.3-1.2); Total Protein 7.3 d/dL (6.2-8.2); VLDL Calculation 17.46 mg/dL (5.00-40.00)
== END | disposition home or self-care (01) ==
LOC: LABWHC1 10:07
PROVIDERS: ATTEND Internal Medicine Interventional Cardiology
DX: E78.2 Mixed hyperlipidemia (principal)
CPT/HCPCS: 36415; 80053; 80061

== ENCOUNTER → 2023-07-28 | Outpatient (CLI) | payer MEDICARE, OTHER ==
--- NOTE | 2023-07-29 19:59 | MR ---
EXAMINATION TYPE: MR brain wo con DATE OF EXAM: 07/28/2023 7:29 PM CLINICAL INDICATION:Male, 78 years old with history of Z86.73, I65.22; PHH, Balance is off, light hea dedness, tremors in hand and drops things a lot COMPARISON: 03/28/2019 TECHNIQUE: Multi planar, multi sequence imaging was performed through the brain including: T1, T2, In version recovery, Diffusion weighted imaging, and gradient echo imaging. No gadolinium was given. FINDINGS: Mild cerebral atrophy with proportional dilation to the ventricular system. The payan-white junctions, ventricular system, and cisterns appear unremarkable. Scattered foci of hi gh T2 signal intensity are seen within the periventricular white matter. Midline structures show no a bnormality. Diffusion-weighted imaging shows no evidence of restricted diffusion. The susceptibility weighted images do not reveal any evidence for micro-hemorrhage. The bone marrow signal is within normal limits. Paranasal sinuses and mastoid air cells: No significant paranasal sinus disease. Visualized orbits: Bilaterally aphakia. IMPRESSION: 1. No evidence of intracranial mass or acute/subacute infarct. 2. Similar nonspecific white matter changes, likely secondary to small vessel ischemic disease.
--- NOTE | 2023-07-29 22:11 | MR ---
EXAMINATION TYPE: MR angio head wo/neck wo/w con DATE OF EXAM: 07/28/2023 7:31 PM CLINICAL INDICATION:Male, 78 years old with history of Z86.73, I65.22; PHH, Balance is off, light hea dedness, tremors in hand and drops things a lot COMPARISON: MRI brain 07/28/2023, MRI brain 03/28/2019 and 06/29/2016 Technical: MRA brain: 2D and 3-D [id number] Axial with MIP and 3-D reconstruction. Performed on a separate w orkstation. MRA neck: Multiplanar, multi-sequence imaging as well as [id number] and phase was performed extra cranial vasculature of the neck. 3-D reformatted images and maximum intensity projection reformatted images were submitted for evaluation, these are performed on a separate workstation. IV Contrast: 7ml cc Gadavist Findings: Vertebral arteries: The vertebral arteries are patent. Vertebral arteries are: Left dominant. Basilar artery: The basilar artery is intact. The basilar artery bifurcation is normal. Internal Carotid arteries: The cervical, petrous, cavernous and supraclinoid segments are normal. MARK: Patent with no evidence of aneurysm. ACOM: Present without evidence of aneurysm. MCA: Patent with no evidence of aneurysm. PATHOLOGY ASSISTANT: Patent with no evidence of aneurysm. origin of the right posterior cerebral artery. PCOM: Normal left and hypoplastic/ origin on the right. Right internal auditory Canal type II vascular loop. RIGHT CAROTID SYSTEM: The common carotid artery is patent. The carotid bifurcations demonstrates no e vidence for hemodynamically significant stenosis. The internal carotid artery is patent. LEFT CAROTID SYSTEM: The common carotid artery is patent. The carotid bifurcations demonstrates no e vidence for hemodynamically significant stenosis. The internal carotid artery is patent. The origins of the great vessels and vertebral arteries appear unremarkable. The right vertebral art aftab is dominant. IMPRESSION: 1. No evidence of intracranial aneurysm or significant stenosis. 2. No evidence of significant stenosis at the carotid bifurcations. The carotid and vertebral arteri es are patent. 3. Right internal auditory Canal type II vascular loop.
== END | disposition home or self-care (01) ==
LOC: RADMRIMAIN 17:47
PROVIDERS: ATTEND Psychiatry & Neurology Neurology
DX: I65.22 Occlusion and stenosis of left carotid artery (principal); G93.89 Other specified disorders of brain; R27.0 Ataxia, unspecified; Z86.73 Personal history of transient ischemic attack (TIA), and cerebral infarction without residual deficits
CPT/HCPCS: 70544; 70549; 70551; A9585

== ENCOUNTER → 2023-11-10 | Outpatient (CLI) | payer MEDICARE, OTHER ==
[2023-11-10 15:18] LABS: ALT 23 U/L (10-49); AST 24 U/L (14-35); Chol/HDL Ratio 3.16 Ratio; LDL Cholesterol,Calculated 89.7 mg/dL (0.0-131.0)
== END | disposition home or self-care (01) ==
LOC: LABWHC1 09:13
PROVIDERS: ATTEND Internal Medicine Interventional Cardiology
DX: E78.2 Mixed hyperlipidemia (principal)
CPT/HCPCS: 36415; 80061; 84450; 84460

== ENCOUNTER → 2024-02-29 | Outpatient (CLI) | payer MEDICARE, OTHER ==
[2024-02-29 15:23] VITALS: BP 157/72; PULSE 70; RESP 16; TEMP 98.2
--- NOTE | 2024-02-29 15:58 | P.SLEEP ---
History of Present Illness DATE: 02/29/2024 CONSULTATION/NEW PATIENT EVALUATION HISTORY OF PRESENT ILLNESS/SLEEP-WAKE EVALUATION: 78-year-old gentleman had b een evaluated in the sleep center for possible obstructive sleep apnea hypopnea syndrome. SLEEP SCHEDULE: Usually sleep schedule from 10 PM to 7 AM 7 days a week. FALLING ASLEEP: Sometimes patient has difficulties with falling asleep. DURING SLEEP: Patient has loud snoring and witnessed episodes of stop breathing during the sleep. Significant amount of movements during the sleep including leg movements and arm movements. no history of hypnogogical hallucinations, sleep paralysis, or cataplexy. DURING THE DAY/WAKE STATE: In the morning patient wake Up tired, falling asleep during the day. [place] sleepiness scale is 6. Patient takes nap at 2 PM. PAST MEDICAL HISTORY: Coronary artery disease, hypertension, depression, hyperlipidemia, acid reflux. PAST SURGICAL HISTORY: Stent insertion to coronary arteries, left hip replacement. MEDICATIONS: Please see below. SOCIAL HISTORY: Please see below. FAMILY HISTORY: Hypertension, stroke, hyperlipidemia. REVIEW OF SYSTEMS: Snoring, sleepiness during the day. No fevers. No double vision. No recent chest pain. No shortness of breath. No abdominal pain. No bleeding episodes. No blood in urine. No seizure episodes. PHYSICAL EXAMINATION: GENERAL: A pleasant patient without any distress. VITAL SIGNS: Please see below, weight 153 pounds, BMI 27.9. HEENT: PERRLA, EOMI. Evaluation of oropharynx showed tongue protrudes midline, low position of soft palate Mallampati 4. NECK: Supple. No JVD. Thyroid is not palpable. 15-3/4 inches in circumference. LUNGS: Clear to percussion and to auscultation. Good air exchange. No wheezing or rhonchi. HEART: S1, S2 regular. No murmurs, gallops or rubs. ABDOMEN: Soft and nontender. Bowel sounds are present. No organomegaly appreciated. EXTREMITIES: No clubbing or cyanosis. FOOD VENDOR: Awake, alert, and oriented x3. Cranial nerves 2 to 7 intact. There is no fasciculation or atrophy noted. No focal deficits observed. ASSESSMENT: 1. Loud snoring, witnessed episodes of stop breathing during the sleep, extremely low position of soft palate Mallampati 4, sleepiness. Obstructive sleep apnea hypopnea syndrome. 2. Significant amount of movements during the sleep, periodic limb movements. 3. Hypertension. 4. Coronary artery disease, status post stent insertions. 5 depression. 6 . Hyperlipidemia. 7. Status post left hip replacement. PLAN: 1. Polysomnography for evaluation of patient's breathing during sleep. 2. Following plan after reading sleep study. 3. Preferable position during sleep on the side. 4. No driving if patient feels any sleepiness. Patient is aware of civil and criminal liability for unsafe driving. 5. Sleep hygiene with regular sleep time for at least 7.5-8 hours. 6. Watching weight. Thank you very much for referring this patient for consultation. Sincerely, Noah De La Cruz MD, PhD, FAASM. 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 Hx stomach ulcers. Gallstones currently History of Any Multi-Drug Resistant Organisms: None Reported Past Surgical History: Cholecystectomy, Heart Catheterization With Stent, Orthopedic Surgery, Tonsillectomy Additional Past Surgical History / Comment(s): Rt shoulder surgery, left wrist fusion, rt elbow surgery, bursa removed rt knee. EGD. COLONOSCOPY. Hiatal hernia repair. Past Anesthesia/Blood Transfusion Reactions: No Reported Reaction Date of Last Stent Placement:: 04/14/2023 Past Psychological History: No Psychological Hx Reported Additional Psychological History / Comment(s): . Smoking Status: Former smoker Past Alcohol Use History: None Reported Additional Past Alcohol Use History / Comment(s): started smoking pipe age 23, QUIT AT AGE 54 Past Drug Use History: None Reported - Past Family History Father Family Medical History: Cancer, Deep Vein Thrombosis (DVT) Additional Family Medical History / Comment(s): THYROID CANCER Medications and Allergies Home Medications Medication Instructions Recorded Confirmed Type Aspirin [Adult Low Dose Aspirin EC] 81 mg PO DAILY 03/18/17 02/29/24 History Montelukast [Singulair] 10 mg PO DAILY 03/18/17 04/12/23 History Multivitamins, Thera [Multivitamin 1 tab PO DAILY 03/18/17 04/12/23 History (formulary)] Sertraline [Zoloft] 25 mg PO HS 03/18/17 02/29/24 History Ubidecarenone [Co Q-10] 400 mg PO DAILY 03/18/17 02/29/24 History Levothyroxine Sodium [Tirosint] 75 mcg PO DAILY 05/13/20 02/29/24 History Miranda-3 Fatty Acids [Miranda-3] 1,000 mg PO BID 04/03/21 02/29/24 History Cholecalciferol [Vitamin D3 (25 50 mcg PO DAILY 04/12/23 02/29/24 History Mcg = 1000 Iu)] Omeprazole [PriLOSEC] 40 mg PO DAILY 04/12/23 04/12/23 History Atorvastatin [Lipitor] 80 mg PO DAILY #90 tab 04/15/23 02/29/24 Rx Clopidogrel [Plavix] 75 mg PO DAILY #90 tab 04/15/23 Rx Metoprolol Tartrate [Lopressor] 25 mg PO BID #180 tab 04/15/23 02/29/24 Rx Metoclopramide [Reglan] 10 mg PO ACHS #20 tab 05/08/23 Rx Omeprazole 40 mg PO DAILY #30 cap 05/08/23 Rx Ezetimibe [Zetia] 10 mg PO DAILY 02/29/24 02/29/24 History Lansoprazole 15 mg PO DAILY 02/29/24 02/29/24 History Simethicone [Gas-X] 125 mg PO BID 02/29/24 02/29/24 History Allergies Allergy/AdvReac Type Severity Reaction Status Date / Time No Known Allergies Allergy Verified 05/08/23 11:59 Physical Exam Vitals: Vital Signs Temp Pulse Resp BP Pulse Ox 02/29/24 15:12 98.2 F 70 16 157/72 98 Intake and Output 02/29/24 02/29/24 02/29/24 06:59 14:59 22:59 Other: Weight 69.4 kg Sleep Note - Sleep Data ESS Total: 6 - Sleep Note Sleep Note: Temperature: 98.2 F Pulse Rate: 70 Respiratory Rate: 16 Blood Pressure: 157/72 SpO2: 98 Height: 5 ft 2 in Weight: 69.4 kg BMI: Neck Circumference: 15.7
== END ==
LOC: 3 N SLEEP 14:35
PROVIDERS: ATTEND Internal Medicine
DX: G47.33 Obstructive sleep apnea (adult) (pediatric) (principal); R06.83 Snoring; G47.61 Periodic limb movement disorder; I10 Essential (primary) hypertension; I25.10 Atherosclerotic heart disease of native coronary artery without angina pectoris; F32.A Depression, unspecified; E78.5 Hyperlipidemia, unspecified; Z98.890 Other specified postprocedural states; Z87.891 Personal history of nicotine dependence
CPT/HCPCS: 99211

== ENCOUNTER 2024-04-15 19:36 | Outpatient (CLI) | payer MEDICARE, OTHER ==
--- NOTE | 2024-04-18 14:59 | P.PCN ---
Description of Procedure: POLYSOMNOGRAPHY REPORT PROCEDURE(S)/DATE(S): Polysomnography 04/15/2024 CLINICAL: Patient has been seen in the sleep center for evaluation of obstructive sleep apnea-hypopnea syndrome. Please see my consultation. Sleep study has been done for evaluation of patient breathing during the sleep. PROCEDURE: The standard montage for clinical polysomnography included the electroencephalogram, the electrooculogram, the mentalis surface electromyography and Lead II cardiography. The respiratory battery consisted of measurements of nasal/buccal air flow, pressure transducer measurements from nose, thoracic and/or abdominal effort and intercostal surface electromyography. Video monitoring has been done to check for any parasomnia events. Nocturnal oxyhemoglobin saturations were obtained by finger oximetry. Step-escalona titration with positive airway pressure was utilized to control the respiratory events, if necessary. RESULTS: During the diagnostic sleep study sleep efficiency was slightly decreased to 80.2%. Latency to sleep onset was significantly prolonged to 41.5 min. Sleep architecture showed stage NI was short 3.0%, Delta sleep was absent 0%, REM sleep was increased to 31.9%. Respiratory channel showed 0 obstructive apneas, 0 mixed apneas, 0 central apneas, 38 hypopneas with lowest oxygen level 86%. Total apnea hypopnea index was 6.6. Heart rate was in the range between 59 and 69, average 63. EMG showed 0 periodic limb movements per hour. IMPRESSIONS: 1. Obstructive sleep apnea hypopnea syndrome in mild range. 2. No significant periodic limb movements have been documented. 3. Hypertension. Please see other impressions from consultation PLAN: 1. The patient will AutoPAP treatment for correction of respiratory abnormalities during the sleep. 2. Losing weight program. 3. Sleep hygiene with regular time in bed for at least 7-1/2 hours. 4. No driving if feeling sleepiness. Thank you very much for allowing me to participate in the management of your patient. Sincerely, Noah De La Cruz MD, PhD, FAASM. Diplomat of [place] [employer], Sleep Medicine Board by [employer] [employer] Sales Recruiter of [facility] [place] cc: Kenrick Harrison MD
== END 2024-04-16 05:40 | disposition home or self-care (01) ==
LOC: 3 N SLEEP 19:36
PROVIDERS: ATTEND Internal Medicine
DX: G47.33 Obstructive sleep apnea (adult) (pediatric) (principal); I10 Essential (primary) hypertension; Z79.899 Other long term (current) drug therapy; Z79.02 Long term (current) use of antithrombotics/antiplatelets; Z87.891 Personal history of nicotine dependence
CPT/HCPCS: 95810

== ENCOUNTER → 2024-04-30 | Outpatient (CLI) | payer MEDICARE, OTHER ==
[2024-04-30 15:42] LABS: ALT 26 U/L (10-49); AST 28 U/L (14-35); Chol/HDL Ratio 2.56 Ratio; LDL Cholesterol,Calculated 61.3 mg/dL (0.0-131.0); VLDL Calculation 16.68 mg/dL (5.00-40.00)
== END | disposition home or self-care (01) ==
LOC: LABWHC1 08:57
PROVIDERS: ATTEND Nurse Practitioner Adult Health
DX: E78.2 Mixed hyperlipidemia (principal)
CPT/HCPCS: 36415; 80061; 84450; 84460

== ENCOUNTER → 2024-12-17 | Outpatient (CLI) | payer MEDICARE, OTHER ==
[2024-12-17 16:44] LABS: ALT 29 U/L (10-49); AST 28 U/L (14-35); Albumin 4.1 g/dL (3.8-4.9); Albumin/Globulin Ratio 1.46 Ratio (1.60-3.17); Alkaline Phosphatase 57 U/L (41-126); Blood Urea Nitrogen 21.7 mg/dL (9.0-27.0); Calcium 9.4 mg/dL (8.7-10.3); Carbon Dioxide 26.4 mmol/L (21.6-31.8); Chloride 105 mmol/L (96-109); Chol/HDL Ratio 2.64 Ratio; Globulin 2.8 g/dL (1.6-3.3); Glucose 96 mg/dL (70-110); LDL Cholesterol,Calculated 60.3 mg/dL (0.0-131.0); Potassium 4.5 mmol/L (3.5-5.5); Sodium 139 mmol/L (135-145); Total Bilirubin 0.7 mg/dL (0.3-1.2); Total Protein 6.9 g/dL (6.2-8.2); VLDL Calculation 19.16 mg/dL (5.00-40.00)
== END | disposition home or self-care (01) ==
LOC: LABWHC1 09:44
PROVIDERS: ATTEND Internal Medicine Interventional Cardiology
DX: E78.2 Mixed hyperlipidemia (principal)
CPT/HCPCS: 36415; 80053; 80061